=== PATIENT | female | born 1955 | race Caucasian/White ===

== ENCOUNTER 2020-06-13 17:41 | Observation (INO) | payer MEDICARE, SELFPAY ==
[2020-06-13] VITALS (7 sets, daily range): BP systolic 140–179; BP diastolic 73–97; PULSE 73–90; RESP 16–18; TEMP 36.6–36.8; O2SAT 94–100; BMI 36.2; BMI 34.0
--- NOTE | 2020-06-13 18:05 | PC.NURSE ---
pt poor historian. I asked her if these were the medications she took and she was unable to confirm what she took with the doses
[2020-06-13 18:14] LABS: Microscopic, Urine URINE MICROSCOPIC (MICROSCOPIC)
[2020-06-13 18:23] LABS: Appearance,Urine CLEAR (Clear); Bilirubin,Urine Negative (Negative); Blood, Urine 2+ (Negative); Color,Urine YELLOW (Yellow); Glucose,Urine (UA) 3+ (Negative); Ketones,Urine Negative (Negative); Leukocyte Esterase,Urine Negative (Negative); Nitrate,Urine Negative (Negative); PH,Urine 5.5 (5.0-8.5); Protein,Urine Negative (Negative); Urobilinogen,Urine 0.2 EU/dl (0.2)
[2020-06-13 18:25] LABS: Basophils % 0.3 % (0.1-2.0); Eosinophils % 0.3 % (0.1-12.0); Hematocrit 38.6 % (37.0-47.0); Hemoglobin 13.1 g/dL (12.2-16.2); Lymphocytes # 1.2 K/mm3 (0.7-4.5); Lymphocytes % 9.2 % (10-50); Mean Corpuscular Hemoglobin 31.5 pg (27.0-31.2); Mean Corpuscular Volume 92.5 fl (81-99); Mean Platelet Volume 8.8 fl (7.4-10.4); Monocytes # 0.3 K/mm3 (0.1-1.0); Monocytes % 2.2 % (1.7-9.3); Neutrophils # 11.6 K/mm3 (1.8-7.8); Platelet Count 175 K/mm3 (142-424); Red Blood Count 4.18 M/mm3 (4.20-5.40); Red Cell Distribution Width 15.1 % (11.5-17.5); White Blood Count 13.2 K/mm3 (4.8-10.8)
[2020-06-13 18:29] LABS: Chloride 94 mmol/L (98-107); Potassium 3.4 mmoL/L (3.5-5.1); Sodium 135 mmol/L (136-145)
[2020-06-13 18:31] LABS: Blood Urea Nitrogen 32 mg/dl (7-17); Creatinine Clearance Estimated 62 mL/min (50-200); Estimated Glomerular Filt Rate 38 ml/min (>60); GFR (African American) 46 ML/MIN (>60)
[2020-06-13 18:32] LABS: Alanine Aminotransferase 20 U/L (12-78); Albumin Level 3.8 g/dl (3.5-5.0); Alkaline Phosphatase 108 U/L (38-126); Anion Gap 14.4 mEq/L (5-15); Aspartate Amino Transferase 25 U/L (14-36); Bilirubin,Total 0.9 mg/dl (0.2-1.3); Calcium 9.3 mg/dl (8.4-10.2); Carbon Dioxide 30 mmol/L (22.0-30.0); Globulin 3.8 g/dL (1.3-3.2); Glucose 302 mg/dl (74-100); Total Protein,Serum 7.6 g/dl (6.3-8.2)
[2020-06-13 18:36] LABS: MANUAL DIFFERENTIAL MANUAL DIFFERENTIAL (MANUAL DIFF)
--- NOTE | 2020-06-13 18:45 | CT_ITS ---
PROCEDURE: CT ABDOMEN PELVIS WO CON CLINICAL INDICATION: abdominal pain Abdominal pain with nausea COMPARISON: No exams were available for comparison TECHNIQUE: Axial images obtained with sagittal and coronal reformats. All CT scans at the facility use one or more dose reduction, viz: automated exposure control, ma/kV adjustment per patient size (including targeted exams where dose is matched to indication, i.e. head), or iterative reconstruction technique. FINDINGS: LOWER THORAX: Coronary artery calcifications noted. ABDOMEN & PELVIS: Prior cholecystectomy. The liver, spleen, adrenal glands, pancreas have an unremarkable appearance. No renal or ureteral calculi. No hydronephrosis. Given history of appendectomy. No intestinal obstruction or free air. There is a moderate amount of retained colonic feces throughout colon. There is stranding of the fat in the left lower quadrant lateral to the sigmoid colon and anterior to the iliac vessels which may represent epiploic appendagitis. No evidence of diverticulitis. No abscess evident. There are post hysterectomy changes. No acute bony findings. IMPRESSION: 1. Inflammatory changes in the left lower quadrant which may represent epiploic appendagitis 2. Diverticulosis 3. Constipation Dictated b oTrres Orozco MD 06/14/2020 08:48 Torres Orozco MD in [place] 06/14/2020 08:48
--- NOTE | 2020-06-13 18:48 | HMH.EDGENADL ---
ED Disposition Clinical Impression: Left leg cellulitis, Diverticular disease Hyperglycemia due to type 2 diabetes mellitus Qualifiers: Diabetes mellitus longterm insulin use: with terminal worker use Qualified Code(s): E11.65 - Type 2 diabetes mellitus with hyperglycemia Disposition: Admitted As Inpatient Condition on Discharge: Good Time of Disposition: 19:28 - Critical Care Critical Care Time: No Attestation: On 06/13/20, the high probability of a clinically significant, sudden or life threatening deterioration of the following system(s) required my full and direct attention, intervention and personal management. The time I documented below is in addition to time spent performing reported procedures but includes the following listed in this critical care notation. Medical Decision Making - Medical Records Medical records reviewed: Yes: I reviewed the patient's medical records. - Moncho Inquiry Pt receiving controlled substance: No Vital Signs: 06/13/20 17:56 06/13/20 18:59 06/13/20 19:22 Temperature 97.9 F Temperature Source Oral Pulse Rate [Right] 90 73 73 Respiratory Rate 16 16 18 Blood Pressure [Right Arm] 179/84 H 160/74 H 153/76 H Blood Pressure Mean [Right Arm] 115 102 101 Blood Pressure Source [Right Arm] Automatic Cuff Automatic Cuff Blood Pressure Position [Right Arm] Sitting 02 Sat by Pulse Oximetry 100 98 96 Oxygen Delivery Method Room Air Room Air Room Air - Lab Data Lab Results 06/13/20 18:10: Urine Color Yellow, Urine Appearance Clear, Urine pH 5.5, Ur Specific [place] 1.010, Urine Protein Negative, Urine Glucose (UA) 3+, Urine Ketones Negative, Urine Blood 2+, Urine Nitrate Negative, Urine Bilirubin Negative, Urine Urobilinogen 0.2, Ur Leukocyte Esterase Negative 06/13/20 18:15: WBC 13.2 H, RBC 4.18 L, Hgb 13.1, Hct 38.6, MCV 92.5, MCH 31.5 H, MCHC 34.0, RDW 15.1, Plt Count 175, MPV 8.8, Neut % (Auto) 88.0 H, Lymph % (Auto) 9.2 L, [place] % (Auto) 2.2, Eos % (Auto) 0.3, Baso % (Auto) 0.3, Neut # (Auto) 11.6 H, Lymph # (Auto) 1.2, [place] # (Auto) 0.3, Eos # (Auto) 0.0, Baso # (Auto) 0.0, Total Counted 100, Neutrophils % (Manual) 84 H, Lymphocytes % (Manual) 12, Monocytes % (Manual) 3, Eosinophils % (Manual) 1, Platelet Estimate Normal, RBC Morphology Normal 06/13/20 18:15: Sodium 135 L, Potassium 3.4 L, Chloride 94 L, Carbon Dioxide 30, Anion Gap 14.4, BUN 32 H, Creatinine 1.40 H, Estimated Creat Clear 62, Estimated GFR 38 L, Est GFR ( Amer) 46 L, Glucose 302 H, Calcium 9.3, Total Bilirubin 0.9, AST 25, ALT 20, Alkaline Phosphatase 108, Total Protein 7.6, Albumin 3.8, Globulin 3.8 H, Albumin/Globulin Ratio 1.0 L 06/13/20 18:15: Lactate 2.8 H Result diagrams: 06/13/20 18:15 06/13/20 18:15 Orders (Tests/Meds): ED MEDICATIONS Generic Name Dose Route Start Last Admin Trade Name Freq PRN Reason Stop Dose Admin Clindamycin Phosphate 600 mg/ 104 mls @ 100 mls/hr 06/13/20 19:00 06/13/20 19:25 Sodium Chloride IV 06/27/20 18:59 100 mls/hr Q6H ROHINI Administration Protocol Sodium Chloride 1,000 mls @ 999 mls/hr 06/13/20 19:00 06/13/20 19:24 Sod Chlor 0.9% 1000ml Bag IV 06/13/20 20:00 999 mls/hr .Q1H1M ROHINI Administration ORDERS Category Date Time Status CT abdomen pelvis wo con Stat Cat Scan 06/13/20 18:45 Taken Full Resp Panel (COVID)(INPT) Routine Lab 06/13/20 18:52 Received UA [Urinalysis and Microscopic] Stat Lab 06/13/20 18:10 Results Blood Culture Stat Micro 06/13/20 18:15 Received Medical Decision Narrative: In summary this is a 65-year-old female with history of diabetes and recent diabetic foot ulcer presenting to the emergency department with fevers, chills, and generalized malaise. Differential diagnoses include cellulitis, bacteremia, sepsis, urinary tract infection, pyelonephritis, intra-abdominal infection. Plan to obtain CBC, CMP, urinalysis, urine culture, blood cultures, CT scan of the abdomen and pelvis, COVID swab. Patient given
[2020-06-13 18:49] LABS: Eosinophils % 1 % (0-3); Lymphocytes % 12 % (10-50); Monocytes % 3 % (2-9); Neutrophils % 84 % (42-76); Platelet Estimate Normal; RBC Morphology Normal; Total Cells Counted 100
[2020-06-13 19:02] LABS: Adenovirus,PCR Not Detected (NotDetected); Bordetella Pertussis Not Detected (NotDetected); Chlamydophila Pneumoniae, PCR Not Detected (NotDetected); Coronavirus 19, PCR Not Detected (NotDetected); Coronavirus 229E Not Detected (NotDetected); Coronavirus NL63 Not Detected (NotDetected); Coronavirus OC43 Not Detected (NotDetected); Coronovirus HKU1,PCR Not Detected (NotDetected); Human Metapneumovirus Not Detected (NotDetected); Influenza A, PCR Not Detected (NotDetected); Influenza AH1, 2009 Not Detected (NotDetected); Influenza AH1, PCR Not Detected (NotDetected); Influenza AH3,PCR Not Detected (NotDetected); Influenza B, PCR Not Detected (NotDetected); Mycoplasma Pneumoniae, PCR Not Detected (NotDetected); Parainfluenza 1, PCR Not Detected (NotDetected); Parainfluenza 2, PCR Not Detected (NotDetected); Parainfluenza 3, PCR Not Detected (NotDetected); Parainfluenza 4, PCR Not Detected (NotDetected); Respiratory Syncytial Virus Not Detected (NotDetected); Rhinovirus/Enterovirus Not Detected (NotDetected)
--- NOTE | 2020-06-13 19:03 | PC.NURSE ---
pt going to CT
[2020-06-13 19:22] LABS: Lactic Acid 2.8 mmol/L (0.7-2.1)
[2020-06-13 20:01] LABS: Bacteria,Urine Trace /lpf; Squamous Epithelial Cell,Urine Occasional #/hpf (0-5)
--- NOTE | 2020-06-13 21:23 | PC.NURSE ---
pt IV in left infiltrated. this nurse attempted to get IV with no success. SMiller at bedside attempting to get IV access. zosan and clindamycin medication delayed due to lack of IV assess.
--- NOTE | 2020-06-13 21:49 | PC.NURSE ---
report called to PRUDENCIO Malin
--- NOTE | 2020-06-13 22:06 | PC.NURSE ---
PT ARRIVED TO THE FLOOR VIA STRETCHER FROM ED AT [id number]
[2020-06-13 22:43] LABS: Reflex Lactic Add Lactic Reflex
[2020-06-13 22:53] LABS: Lactic Acid Follow Up (RFLX 1) 1.7 mmol/L (0.7-2.1)
--- NOTE | 2020-06-14 03:42 | PC.NURSE ---
Pt A&OX4 lungs diminished throughout. Pt denies any pain or SOA.LLE reddened,warm to touch, and trace edema. Stage 3 on left heel,dressing applied 4x4 and kerlix . Photo consent obtain and photos on chart. Pt has voided per bedpan several times this shift.
[2020-06-14 04:00] VITALS: BP 159/77; PULSE 79; RESP 18; TEMP 36.9; O2SAT 96
[2020-06-14 05:41] LABS: POC Glucose,Bedside 157 (70-110)
[2020-06-14 06:45] LABS: Chloride 98 mmol/L (98-107); Sodium 137 mmol/L (136-145)
[2020-06-14 06:49] LABS: Anion Gap 9.9 mEq/L (5-15); Blood Urea Nitrogen 27 mg/dl (7-17); Carbon Dioxide 32 mmol/L (22.0-30.0); Creatinine Clearance Estimated 74 mL/min (50-200); Estimated Glomerular Filt Rate 50 ml/min (>60); GFR (African American) 60 ML/MIN (>60); Glucose 142 mg/dl (74-100)
[2020-06-14 07:09] VITALS: BMI 34.2
[2020-06-14 07:09] LABS: Potassium 2.9 mmoL/L (3.5-5.1)
[2020-06-14 07:10] LABS: Basophils % 0.4 % (0.1-2.0); Eosinophils # 0.1 K/mm3 (0.0-0.4); Eosinophils % 1.4 % (0.1-12.0); Hematocrit 32.7 % (37.0-47.0); Lymphocytes # 0.9 K/mm3 (0.7-4.5); MANUAL DIFFERENTIAL MANUAL DIFFERENTIAL (MANUAL DIFF); Mean Corpuscular HGB Conc 34.9 g/dL (31.8-35.4); Mean Corpuscular Volume 91.8 fl (81-99); Mean Platelet Volume 7.9 fl (7.4-10.4); Monocytes # 0.2 K/mm3 (0.1-1.0); Monocytes % 2.4 % (1.7-9.3); Neutrophils # 8.5 K/mm3 (1.8-7.8); Neutrophils % 86.8 % (37.0-80.0); Platelet Count 134 K/mm3 (142-424); Red Blood Count 3.56 M/mm3 (4.20-5.40); Red Cell Distribution Width 15.1 % (11.5-17.5); White Blood Count 9.8 K/mm3 (4.8-10.8)
--- NOTE | 2020-06-14 07:20 | HMH.PHAVTE ---
[facility] Pharmacy VTE Monitoring - Patient Demographics Admission date: 06/13/20 Report Date: 06/14/20 Time: 07:21 Allergies/Adverse Reactions: Patient Allergies sulfamethoxazole [From Sulfamethoxazole-Trimethoprim] Allergy (Verified 06/14/20 05:30) Hives trimethoprim [From Sulfamethoxazole-Trimethoprim] Allergy (Verified 06/14/20 05:30) Hives From BACTRIM Allergy (Mild, Uncoded 06/13/20 22:14) Hives Height: 1.65 m Weight: 93.157 kg Patient Problems: Current Active Problems Left leg cellulitis (Acute) Hyperglycemia due to type 2 diabetes mellitus (Acute) Diverticular disease (Acute) - VTE Risk Labs: VTE Related Lab Results Hgb 13.1 g/dL (12.2-16.2) 06/13/20 18:15 Hct 32.7 % (37.0-47.0) L 06/14/20 06:21 Plt Count 134 K/mm3 (142-424) L 06/14/20 06:21 BUN 27 mg/dl (7-17) H 06/14/20 06:21 Creatinine 1.10 mg/dl (0.52-1.04) H D 06/14/20 06:21 Estimated Creat Clear 74 mL/min (50-200) 06/14/20 06:21 Was VTE Risk Assessment Performed: Yes VTE Score: 5 VTE Risk Level: Low Risk Clinical Trial Participant: No - Prophylaxis VTE Prophylaxis Ordered?: Yes Types of VTE Prophylaxis: TEDS Knee High
[2020-06-14 07:41] VITALS: BP 146/70; PULSE 79; RESP 18; TEMP 36.4; O2SAT 98
[2020-06-14 07:41] LABS: Calcium 8.3 mg/dl (8.4-10.2)
[2020-06-14 07:47] VITALS: PULSE 79; RESP 18; O2SAT 98
[2020-06-14 08:12] LABS: Lymphocytes % 7 % (10-50); Monocytes % 4 % (2-9); Neutrophils % 89 % (42-76); Platelet Estimate Normal; RBC Morphology Normal; Total Cells Counted 100
[2020-06-14 08:27] LABS: Hemoglobin 11.4 g/dL (12.2-16.2)
--- NOTE | 2020-06-14 08:37 | HMH.HP ---
*Admission Date: 06/13/20 *Chief complaint: left leg pain and erythema *History of present illness: Ms Paz is a 65-year-old female with history of diabetes, HTN, and previous CVA who presented to the emergency department with fever, chills, and generalized malaise. She has felt poorly for the past few days. She had surgery on a diabetic foot ulcer on her left foot and noticed some swelling and redness in her left lower leg. She has completed antibiotics, but there has been increasing redness around the site and up into her leg. She also has had abdominal pain that radiates into her back. She was worried about a urinary tract infection as well as worsening infection in her leg. She states she has had numerous episodes of cellulitis in her left leg. The patient was evaluated in the emergency room and given IV fluids as well as IV clindamycin for her cellulitis. Her white blood cell count was elevated. She did have a CT of her abdomen and pelvis showing constipation and evidence of diverticulosis but nothing acute. Her UA did not show signs of urinary tract infection. She was given IV Zosyn and admitted to Dr. Perez who is on service call. [facility] History I have reviewed the patient's past medical history: Yes Medical History: Reports:: Atrial Fibrillation, Cancer, Cerebrovascular Accident, Diabetes Mellitus Type 2, Hypertension, MRSA *Have you ever received a pneumonia vaccine?: Yes *Have you received a flu vaccine this season?: Yes Other Medical History: Reports: Cataracts (bilateral) Laterality Cases: Bilateral: Cataract Other Surgeries: Yes: Appendectomy, Cholecystectomy, Hysterectomy-Partial, Tubal Ligation Amputation: No - *Social History Last grade of school completed: GED Smoking Status: Former smoker Alcohol Intake: never *Occupational Status:: retired, disabled Housing: apartment Household Members: spouse, children *Travel in the last 8 weeks: None Family Hx:: Cancer, Diabetes, Heart Attack Review of Systems - Constitutional Reports chills, Reports fever(s), Reports weakness - Eyes Denies blurry vision, Denies double vision - ENT Reports nasal congestion, Denies sore throat - *Cardiovascular Denies chest pain, Denies shortness of breath - *Respiratory Denies cough, Denies shortness of breath - *Gastrointestinal Denies abdominal pain, Denies loose stools, Denies nausea, Denies vomiting - *Genitourinary Reports urinary urgency, Denies difficulty urinating, Denies painful urination - *Musculoskeletal Reports back pain, Denies joint pain - Integumentary/Breasts Reports redness (left lower leg) - *Neurologic Reports headache(s), Denies abnormal walking, Denies abnormal speech, Denies numbness, Denies dizziness, Denies weakness Meds Home Medications Medication Instructions Recorded Confirmed Type Apixaban [Eliquis] 5 mg PO BID 06/14/20 06/14/20 History Atorvastatin Calcium [Lipitor 20mg 20 mg PO HS 06/14/20 06/14/20 History Tab] Clopidogrel Bisulfate [Clopidogrel 75 mg PO DAILY 06/14/20 06/14/20 History 75mg Tab] Empagliflozin [Jardiance] 10 mg PO DAILY 06/14/20 06/14/20 History Furosemide [Furosemide 80mg Tab] 80 mg PO TID 06/14/20 06/14/20 History Insulin NPH Hum/Reg Insulin Hm 65 units SQ BIDWM 06/14/20 06/14/20 History [Novolin 70-30 100 Unit/ml Vial] Insulin Regular, Human [Novolin R] 15 units SQ AC 06/14/20 06/14/20 History Metoprolol Tartrate [Lopressor 100 100 mg PO BID 06/14/20 06/14/20 History mg Tablets] Potassium Chloride [K-Tab ER 20 20 meq PO DAILY 06/14/20 06/14/20 History mEq] Tramadol HCl [Tramadol 50mg 50 mg PO TIDP PRN 06/14/20 06/14/20 History Tab] allopurinoL [Allopurinol 100mg 100 mg PO TID 06/14/20 06/14/20 History tablet] cloNIDine HCL [cloNIDine 0.2mg 0.2 mg PO BID 06/14/20 06/14/20 History Tablet] dilTIAZem HCL [Diltiazem ER] 120 mg PO DAILY 06/14/20 06/14/20 History Allergies Allergy/AdvReac Type Severity Reac
--- NOTE | 2020-06-14 11:18 | ECG_ITS ---
APPROVED REPORT Exam: Resting ECG HR:63 bpm ECG Measurements Heart Rate 63 AXES QRSd 92 QRS 84 QT 476 T 51 QTc 487 <Conclusion> Atrial fibrillation Abnormal ECG Electronically signed by : Trent Chapa, 06/15/2020 18:51:50
[2020-06-14 11:27] LABS: POC Glucose,Bedside 201 (70-110)
--- NOTE | 2020-06-14 11:44 | HMH.PHAINT ---
home medication completed using list [facility] in [place], list from pt physician and pt bottles.
[2020-06-14 12:03] LABS: Blood Urea Nitrogen 27 mg/dl (7-17); Calcium 8.5 mg/dl (8.4-10.2); Carbon Dioxide 33 mmol/L (22.0-30.0); Chloride 96 mmol/L (98-107); Creatinine Clearance Estimated 68 mL/min (50-200); Estimated Glomerular Filt Rate 45 ml/min (>60); GFR (African American) 54 ML/MIN (>60); Glucose 198 mg/dl (74-100); Sodium 137 mmol/L (136-145)
[2020-06-14 14:59] VITALS: BP 133/76; PULSE 55; RESP 18; TEMP 36.5; O2SAT 95
[2020-06-14 16:06] LABS: POC Glucose,Bedside 169 (70-110)
--- NOTE | 2020-06-14 16:41 | PC.NURSE ---
Pt has been pleasant and cooperative this shift. A&O X4. No complaints of pain or SOA. Lungs CTA. Pt has been on room air for the majority of the shift with sats. >95%. Pt has O2 @ 2 LPM available at bedside for prn usage. Pt gets up with 1 assist to the BSC. No BM this shift. FSBS results have been 201 and 169, both of which have required insulin coverage per MAR. Stage 2 pressure ulcer noted to LT heel and dressed with an ABD pad, Kerlix, and tape. BLE are noted to be red and slightly edematous. 22 G peripheral IV in the LT wrist is patent and infusing NS @ 150 ML/HR. VSS. Call light within reach. Will continue to monitor.
[2020-06-14 20:00] VITALS: BP 126/69; PULSE 67; RESP 16; TEMP 36.6; O2SAT 96
[2020-06-14 20:26] VITALS: PULSE 67; O2SAT 96
[2020-06-14 20:28] LABS: POC Glucose,Bedside 255 (70-110)
--- NOTE | 2020-06-15 03:22 | PC.NURSE ---
Pt A&OX4 lungs CTA. Pt denies any pain or SOA. BLE slight redness noted with 1+ edema. Dressing in place on L heel c/d/i. Pt was up to chair @ beginning of shift and tolerated well. Pt has voided per BSC several time this shift. Pt has rested quietly this shift.
[2020-06-15 04:00] VITALS: BP 137/69; PULSE 59; RESP 17; TEMP 36.7; O2SAT 97
[2020-06-15 04:57] VITALS: BMI 34.9
[2020-06-15 05:48] LABS: POC Glucose,Bedside 179 (70-110)
[2020-06-15 07:05] LABS: Chloride 102 mmol/L (98-107); Potassium 3.5 mmoL/L (3.5-5.1); Sodium 138 mmol/L (136-145)
[2020-06-15 07:07] LABS: Blood Urea Nitrogen 23 mg/dl (7-17); Creatinine Clearance Estimated 69 mL/min (50-200); Estimated Glomerular Filt Rate 45 ml/min (>60); GFR (African American) 54 ML/MIN (>60)
[2020-06-15 07:08] LABS: Alanine Aminotransferase 10 U/L (12-78); Albumin Level 2.9 g/dl (3.5-5.0); Albumin/Globulin Ratio 0.9 (1.1-1.8); Alkaline Phosphatase 94 U/L (38-126); Aspartate Amino Transferase 21 U/L (14-36); Bilirubin,Total 0.6 mg/dl (0.2-1.3); Calcium 8.3 mg/dl (8.4-10.2); Globulin 3.4 g/dL (1.3-3.2); Glucose 166 mg/dl (74-100); Total Protein,Serum 6.3 g/dl (6.3-8.2)
[2020-06-15 07:42] LABS: Anion Gap 10.5 mEq/L (5-15); Carbon Dioxide 29 mmol/L (22.0-30.0)
[2020-06-15 08:00] VITALS: BP 146/77; PULSE 77; RESP 18; TEMP 36.5; O2SAT 96
--- NOTE | 2020-06-15 08:34 | HMH.ACPN2 ---
Internal Medicine - PN: Subj *Date: 06/15/20 *Time: 08:34 Interval history: Patient states she is feeling better this morning. She denies any abdominal pain. She still has some pain in her left lower leg. She thinks the swelling and redness is slightly better today. She slept well and ate breakfast. Exam Vital signs and Labs for Last 24 Hours: Temp Pulse Resp BP Pulse Ox 98.0 F 59 L 17 137/69 97 06/15/20 04:00 06/15/20 04:00 06/15/20 04:00 06/15/20 04:00 06/15/20 04:00 Laboratory Results - last 24 hr 06/14/20 11:02: POC Glucose 201 H 06/14/20 11:45: Sodium 137, Potassium 3.0 L, Chloride 96 L, Carbon Dioxide 33 H, Anion Gap 11.0, BUN 27 H, Creatinine 1.20 H, Estimated Creat Clear 68, Estimated GFR 45 L, Est GFR ( Amer) 54 L, Glucose 198 H D, Calcium 8.5 06/14/20 15:45: POC Glucose 169 H 06/14/20 20:02: POC Glucose 255 H 06/15/20 05:30: POC Glucose 179 H 06/15/20 06:30: Sodium 138, Potassium 3.5, Chloride 102, Carbon Dioxide 29, Anion Gap 10.5, BUN 23 H, Creatinine 1.20 H, Estimated Creat Clear 69, Estimated GFR 45 L, Est GFR ( Amer) 54 L, Glucose 166 H, Calcium 8.3 L, Total Bilirubin 0.6, AST 21, ALT 10 L D, Alkaline Phosphatase 94, Total Protein 6.3, Albumin 2.9 L, Globulin 3.4 H, Albumin/Globulin Ratio 0.9 L I & O for Last 24 hours: Intake & Output 06/12/20 06/13/20 06/14/20 06/15/20 11:59 11:59 11:59 11:59 Intake Total 2313 / 2313 2480 / 2480 Output Total 300 / 300 Balance 2012 2480 / 2480 Weight 205 lb 6 oz 210 lb - Constitutional no acute distress - *Routine Respiratory Exam Present: CTA bilaterally - *Routine Cardiovascular Exam Present: irregular rhythm - *Routine Abdominal Exam Present: soft, normoactive bowel sounds. Absent: tenderness - *Routine Extremities Exam Present: edema (left lower leg slightly improved). Absent: cyanosis, clubbing - *Routine Skin Exam Present: intact, erythema (left lower leg slightly improved) - *Routine Neurological Exam Present: alert, oriented X3 Assessment and Plan (1) Left leg cellulitis Current visit: Yes Status: Acute Category: Medical Code(s): L03.116 - Cellulitis of left lower limb (2) Hyperglycemia due to type 2 diabetes mellitus Current visit: Yes Status: Acute Qualifiers: Diabetes mellitus usp insulin use: with intermediate manager use Qualified Code(s): E11.65 - Type 2 diabetes mellitus with hyperglycemia; Z79.4 - supervisor intermediates (current) use of insulin Category: Medical Code(s): E11.65 - Type 2 diabetes mellitus with hyperglycemia (3) Hypertension Current visit: Yes Status: Chronic Category: Medical Code(s): I10 - Essential (primary) hypertension (4) Paroxysmal A-fib Current visit: Yes Status: Chronic Category: Medical Code(s): I48.0 - Paroxysmal atrial fibrillation (5) Diverticular disease Current visit: Yes Status: Chronic Category: Medical Code(s): K57.90 - Diverticulosis of intestine, part unspecified, without perforation or abscess without bleeding (6) Hypokalemia Current visit: Yes Status: Acute Category: Medical Code(s): E87.6 - Hypokalemia (7) Renal insufficiency Current visit: Yes Status: Acute Category: Medical Code(s): N28.9 - Disorder of kidney and ureter, unspecified - Assessment and plan all Dx Assessment and Plan for all problems:: We will try to locate EKG report which was ordered yesterday. Swelling and redness in her left lower leg seem to be better. We will continue antibiotics and await culture results. Potassium has normalized as has her white blood cell count.
[2020-06-15 11:46] LABS: POC Glucose,Bedside 239 (70-110)
[2020-06-15 12:07] VITALS: BMI 34.9
--- NOTE | 2020-06-15 15:29 | HMH.PHAINT ---
DISCHARGE COUNSELING COMPLETED ON PATIENT. NEW PRESCRIPTIONS INCLUDE CLINDAMYCIN, LASIX (DOSE CHANGE), METOPROLOL TARTRATE (DOSE CHANGE), AND POTASSIUM. ALL NEW PRESCRIPTIONS WERE SENT TO [facility] IN [place]. PATIENT IS TO CONTINUE ALL HOME MEDICATIONS WITH THE EXCEPTION OF THE DOSE CHANGES IN LASIX AND METOPROLOL. PATIENT VERBALIZED UNDERSTANDING AND HAD NO QUESTIONS AT THIS TIME. -KATHY FLYNN, ZAKD
[2020-06-15 16:00] VITALS: BP 146/85; PULSE 58; RESP 16; TEMP 36.4; O2SAT 97
[2020-06-15 16:57] LABS: POC Glucose,Bedside 242 (70-110)
--- NOTE | 2020-06-15 18:08 | PC.NURSE ---
pt has done very well today. she has been up to bsc with standby assistance. no complaints voiced. vss. will cont. to monitor.
--- NOTE | 2020-06-19 13:43 | HMH.DCSUM ---
General - General Admission date:: 06/13/20 Discharge date: 06/15/20 HPI HPI: Ms Paz is a 65-year-old female with history of diabetes, HTN, and previous CVA who presented to the emergency department with fever, chills, and generalized malaise. She has felt poorly for the past few days. She had surgery on a diabetic foot ulcer on her left foot and noticed some swelling and redness in her left lower leg. She has completed antibiotics, but there has been increasing redness around the site and up into her leg. She also has had abdominal pain that radiates into her back. She was worried about a urinary tract infection as well as worsening infection in her leg. She states she has had numerous episodes of cellulitis in her left leg. The patient was evaluated in the emergency room and given IV fluids as well as IV clindamycin for her cellulitis. Her white blood cell count was elevated. She did have a CT of her abdomen and pelvis showing constipation and evidence of diverticulosis but nothing acute. Her UA did not show signs of urinary tract infection. She was given IV Zosyn and admitted to Dr. Perez who is on service call. Hospital Course Hospital Course: The patient was started on IV fluids and IV antibiotics for her cellulitis. She was also started on potassium due to hypokalemia. The swelling and redness in her left lower leg improved and her potassium normalized as did her white blood cell count. The patient was much more lucid. She was able to report that she had a distant past history of rupture of the left Achilles tendon, and a reinjury last month which required her to wear a boot. Apparently this was the etiology of the heel ulcer. She was stable to be discharged home on oral antibiotics and will f/u with her PCP. Objective Vital signs: Temp Pulse Resp BP Pulse Ox 97.6 F 58 L 16 146/85 H 97 06/15/20 16:00 06/15/20 16:00 06/15/20 16:00 06/15/20 16:00 06/15/20 16:00 Narrative: - Constitutional no acute distress - *Routine HEENT Exam Head: Present: normocephalic Eye: Present: EOMI, PERRL ENT: Present: mucous membranes dry - *Routine Neck Exam Present: supple. Absent: lymphadenopathy - *Routine Respiratory Exam Present: CTA bilaterally - *Routine Cardiovascular Exam Present: irregular rhythm - *Routine Abdominal Exam Present: soft, normoactive bowel sounds, tenderness (diffuse) - *Routine Extremities Exam Present: edema (bilateral LE edema). Absent: cyanosis, clubbing - *Routine Skin Exam Present: erythema (LLE, dressing in place over foot), warm. Absent: rash - *Routine Neurological Exam Present: alert, oriented X3 DS: Diagnosis - Discharge Diagnosis (1) Left leg cellulitis Status: Acute (2) Hyperglycemia due to type 2 diabetes mellitus Status: Acute (3) Hypertension Status: Chronic (4) Paroxysmal A-fib Status: Chronic (5) Diverticular disease Status: Chronic (6) Hypokalemia Status: Acute (7) Renal insufficiency Status: Acute Discharge Plan - Patient Discharge Instructions Patient Instructions: DI for Cellulitis -- Adult, Cellulitis, Essential Hypertension, Acute Renal Failure, DI for Hypokalemia - Follow up Plan Disposition: Home, Self-Fpc Medications: Home Medications Medication Instructions Recorded Confirmed Type Apixaban [Eliquis] 5 mg PO BID 06/14/20 06/14/20 History Atorvastatin Calcium [Lipitor 20mg 20 mg PO HS 06/14/20 06/14/20 History Tab] Clopidogrel Bisulfate [Clopidogrel 75 mg PO DAILY 06/14/20 06/14/20 History 75mg Tab] Collagenase Clostridium Hist. 1 applicatio TOPICAL DIRECTED 06/14/20 06/14/20 History [Santyl] Empagliflozin [Jardiance] 10 mg PO DAILY 06/14/20 06/14/20 History Insulin NPH Hum/Reg Insulin Hm 24 units SQ BIDWM 06/14/20 06/15/20 History [Novolin 70-30 100 Unit/ml Vial] Insulin Regular, Human [Novolin R] 0 units SQ AC 06/14/20 06/14/20 Histo
== END 2020-06-15 19:12 | disposition home or self-care (01) ==
LOC: ER 19:29 → 2ND 19:49
PROVIDERS: Admitting Provider Family Medicine; Emergency Provider Emergency Medicine; PCP Family Medicine; Visit Provider Family Medicine
DX: E11.621 Type 2 diabetes mellitus with foot ulcer (principal); L03.116 Cellulitis of left lower limb; E11.65 Type 2 diabetes mellitus with hyperglycemia; I10 Essential (primary) hypertension; I48.0 Paroxysmal atrial fibrillation; E87.6 Hypokalemia; Z87.891 Personal history of nicotine dependence; Z79.4 Long term (current) use of insulin; Z79.01 Long term (current) use of anticoagulants; Z79.02 Long term (current) use of antithrombotics/antiplatelets; Z88.2 Allergy status to sulfonamides; Z88.8 Allergy status to other drugs, medicaments and biological substances
CPT/HCPCS: 36415; 74176; 80048; 80053; 81001; 82962; 83605; 85007; 85025; 87040; 87581; 87633; 87798; 93005; 96365; 96367; 99285; G0378; J2543

== ENCOUNTER 2020-10-01 07:49 | Observation (INO) | payer MEDICARE, SELFPAY ==
[2020-10-01] VITALS (9 sets, daily range): BP systolic 91–158; BP diastolic 60–84; PULSE 60–120; RESP 16–22; TEMP 36.6–37.4; O2SAT 84–100; BMI 39.9; BMI 37.6
--- NOTE | 2020-10-01 08:01 | XR_ITS ---
PROCEDURE: XR CHEST PORTABLE CLINICAL HISTORY: soa Shortness of air for 2 days COMPARISON: CR CXR CHEST(2 VIEWS-NOT PORTABLE) from 05/14/2014 CR CXR CHEST(2 VIEWS-NOT PORTABLE) from 05/25/2014 CR CXR1 CHEST-PORTABLE from 12/24/2014 FINDINGS: There is cardiomegaly with pulmonary venous redistribution and interstitial edema consistent with CHF. There may be trace bilateral effusions. Lung bases are under penetrated. No acute bony abnormalities. IMPRESSION: CHF with mild interstitial edema Dictated by: Torres Orozco MD 10/01/2020 09:39 Torres Orozco MD in [place] 10/01/2020 09:39
--- NOTE | 2020-10-01 08:04 | ECG_ITS ---
APPROVED REPORT Exam: Resting ECG HR:96 bpm ECG Measurements Heart Rate 96 AXES QRSd 76 QRS 78 QT 336 T 87 QTc 424 Conclusion Atrial fibrillation Cannot rule out Anterior infarct, age undetermined Abnormal ECG Electronically signed by : Sohan Gibson, 10/02/2020 07:32:24
--- NOTE | 2020-10-01 08:04 | HMH.EDGENADL ---
ED Disposition Clinical Impression: Atrial fibrillation with rapid ventricular response, Hypoxemia, CHF exacerbation Disposition: Admitted As Inpatient Condition on Discharge: Fair Referrals: Ludwig Goldberg [Primary Care Provider] - - Critical Care Critical Care Time: No Attestation: On , the high probability of a clinically significant, sudden or life threatening deterioration of the following system(s) required my full and direct attention, intervention and personal management. The time I documented below is in addition to time spent performing reported procedures but includes the following listed in this critical care notation. Medical Decision Making - Medical Records Medical records reviewed: Yes: I reviewed the patient's medical records. - Moncho Inquiry Pt receiving controlled substance: No Vital Signs: 10/01/20 07:50 10/01/20 09:01 10/01/20 09:44 Temperature 99.3 F Temperature Source Oral Pulse Rate [Left Radial] 120 H 112 H 82 Respiratory Rate 22 20 18 Blood Pressure [Right Arm] 158/71 H 146/60 H 91/69 L Blood Pressure Mean [Right Arm] 100 88 76 Blood Pressure Source [Right Arm] Automatic Cuff Automatic Cuff Automatic Cuff Blood Pressure Position [Right Arm] Sitting Sitting Sitting 02 Sat by Pulse Oximetry 84 L 100 99 Oxygen Delivery Method Room Air Nasal Cannula Nasal Cannula Oxygen Flow Rate (LPM) 2 2 - Lab Data Lab results reviewed: Yes: I reviewed the patient's lab results. Lab Results 10/01/20 08:15: WBC 9.9, RBC 4.03 L, Hgb 12.3, Hct 37.8, MCV 93.8, MCH 30.6, MCHC 32.6, RDW 14.4, Plt Count 152, MPV 8.5, Neut % (Auto) 80.9 H, Lymph % (Auto) 11.8, [place] % (Auto) 3.2, Eos % (Auto) 3.4, Baso % (Auto) 0.7, Neut # (Auto) 8.0 H, Lymph # (Auto) 1.2, [place] # (Auto) 0.3, Eos # (Auto) 0.3, Baso # (Auto) 0.1 10/01/20 08:15: Sodium 140, Potassium 4.6, Chloride 103, Carbon Dioxide 32 H, Anion Gap 9.6, BUN 40 H, Creatinine 1.30 H, Estimated Creat Clear 73, Estimated GFR 41 L, Est GFR ( Amer) 50 L, Glucose 115 H, Calcium 9.0, Total Bilirubin 0.6, AST 26, ALT 19, Alkaline Phosphatase 149 H, Troponin I 0.02, NT-Pro-B Natriuret Pep 1500 H, Total Protein 6.8, Albumin 3.8, Globulin 3.0, Albumin/Globulin Ratio 1.3 10/01/20 09:07: PT 11.3, INR 1.02 10/01/20 09:07: Magnesium 2.0 10/01/20 09:47: SARS-CoV-2 IgG Ab (Rapid) Negative, SARS-CoV-2 IgM Ab (Rapid) Negative Result diagrams: 10/01/20 08:15 10/01/20 08:15 Orders (Tests/Meds): ED MEDICATIONS Discontinued Medications Generic Name Dose Route Start Last Admin Trade Name Freq PRN Reason Stop Dose Admin Furosemide 40 mg 10/01/20 08:02 10/01/20 08:49 Furosemide 40mg/4ml Vial IV 10/01/20 08:03 40 mg ONCE ONE Administration ORDERS Category Date Time Status Troponin I Q3H Lab 10/01/20 11:00 Ordered Troponin I Q3H Lab 10/01/20 14:00 Ordered EKG Request [ECG Request by /Mitra] Stat Y 10/01/20 08:01 Ordered Medical Decision Narrative: 65-year-old female with atrial fibrillation, hypertension, CHF presenting with acute onset dyspnea. Nontoxic, afebrile, hemodynamically stable. Initially hypoxic to 86% on room air on arrival and is oxygenating well on 2 to 3 L by nasal cannula now. Patient was in atrial fibrillation with rapid ventricular response up to the 140s on arrival but this was very brief and she remained rate controlled in atrial fibrillation with a heart rate in the 90s without intervention. Her initial troponin is 0.02 and her EKG was nonischemic. Chest x-ray showed interstitial edema consistent with CHF exacerbation and her proBNP is up to 1500. She was given 40 mg of IV Lasix for this. CBC and CMP are nonactionable. Given her oxygen requirement and hypoxemia, I will speak to her primary care physician to admit her to the hospital. Patient remained stable in the ED. General Adult HPI - General Stated complaint: SOA Time Seen by Provider: 10/01/20 08:04 - History of Present Illness HPI narrative:
[2020-10-01 08:41] LABS: Basophils # 0.1 K/mm3 (0-0.2); Basophils % 0.7 % (0.1-2.0); Eosinophils # 0.3 K/mm3 (0.0-0.4); Eosinophils % 3.4 % (0.1-12.0); Hematocrit 37.8 % (37.0-47.0); Hemoglobin 12.3 g/dL (12.2-16.2); Lymphocytes # 1.2 K/mm3 (0.7-4.5); Lymphocytes % 11.8 % (10-50); Mean Corpuscular HGB Conc 32.6 g/dL (31.8-35.4); Mean Corpuscular Hemoglobin 30.6 pg (27.0-31.2); Mean Corpuscular Volume 93.8 fl (81-99); Mean Platelet Volume 8.5 fl (7.4-10.4); Monocytes # 0.3 K/mm3 (0.1-1.0); Monocytes % 3.2 % (1.7-9.3); Neutrophils % 80.9 % (37.0-80.0); Platelet Count 152 K/mm3 (142-424); Red Blood Count 4.03 M/mm3 (4.20-5.40); Red Cell Distribution Width 14.4 % (11.5-17.5); White Blood Count 9.9 K/mm3 (4.8-10.8)
--- NOTE | 2020-10-01 09:33 | PC.NURSE ---
lab at to recollect blood r/t hemoloysis on previous specimens
[2020-10-01 10:02] LABS: INR 1.02 (0.9-1.1); Prothrombin Time 11.3 seconds (9.4-11.8)
--- NOTE | 2020-10-01 10:22 | PC.NURSE ---
Labs are delayed due to only have a red top which takes longer to spin down per lab. Results will be released in approx 15-18 minutes.
[2020-10-01 10:23] LABS: Chloride 103 mmol/L (98-107); Potassium 4.6 mmoL/L (3.5-5.1); Sodium 140 mmol/L (136-145)
[2020-10-01 10:25] LABS: Alanine Aminotransferase 19 U/L (12-78); Aspartate Amino Transferase 26 U/L (14-36); Blood Urea Nitrogen 40 mg/dl (7-17); Creatinine Clearance Estimated 73 mL/min (50-200); Estimated Glomerular Filt Rate 41 ml/min (>60); GFR (African American) 50 ML/MIN (>60)
[2020-10-01 10:26] LABS: Albumin Level 3.8 g/dl (3.5-5.0); Albumin/Globulin Ratio 1.3 (1.1-1.8); Alkaline Phosphatase 149 U/L (38-126); Anion Gap 9.6 mEq/L (5-15); Bilirubin,Total 0.6 mg/dl (0.2-1.3); Carbon Dioxide 32 mmol/L (22.0-30.0); Glucose 115 mg/dl (74-100); Total Protein,Serum 6.8 g/dl (6.3-8.2)
[2020-10-01 10:35] LABS: NT Pro Brain Natriuretic Pep. 1500 pg/mL (0-125)
[2020-10-01 10:38] LABS: Troponin I 0.02 ng/ml (0.00-0.034)
[2020-10-01 10:39] LABS: Coronavirus 19 IgG Antibody Negative (Negative); Coronavirus 19 IgM Antibody Negative (Negative)
--- NOTE | 2020-10-01 10:51 | PC.NURSE ---
Dr Pate on with Dr Benitez
--- NOTE | 2020-10-01 10:54 | PC.NURSE ---
Dr Pate speaking with Dr Gibson nail professional for unassigned patients
[2020-10-01 11:39] LABS: Troponin I 0.03 ng/ml (0.00-0.034)
--- NOTE | 2020-10-01 11:57 | PC.NURSE ---
Pt changed after urinating a large amount in her brief and bed. Pt's entire sheet was wet. Bed changed and new brief placed.
--- NOTE | 2020-10-01 12:05 | PC.NURSE ---
contacted admissions to check on status of admission, states they don't have the information. Spoke with house visitor who states she will contact admissions now with bed assignment information.
[2020-10-01 12:18] LABS: Microscopic, Urine URINE MICROSCOPIC (MICROSCOPIC)
[2020-10-01 12:22] LABS: Appearance,Urine CLEAR (Clear); Bilirubin,Urine Negative (Negative); Blood, Urine TRACE-I (Negative); Color,Urine YELLOW (Yellow); Glucose,Urine (UA) Negative (Negative); Ketones,Urine Negative (Negative); Leukocyte Esterase,Urine Negative (Negative); Nitrate,Urine Negative (Negative); Protein,Urine Negative (Negative); Specific Gravity, Urine 1.015 (1.005-1.030); Urobilinogen,Urine 0.2 EU/dl (0.2)
--- NOTE | 2020-10-01 12:22 | PC.NURSE ---
Pt on bed handley again at this time.
[2020-10-01 12:37] LABS: Squamous Epithelial Cell,Urine Occasional #/hpf (0-5)
--- NOTE | 2020-10-01 13:42 | HMH.PHAVTE ---
[facility] Pharmacy VTE Monitoring - Patient Demographics Admission date: 10/01/20 Report Date: 10/01/20 Time: 13:42 Allergies/Adverse Reactions: Patient Allergies sulfamethoxazole [From Sulfamethoxazole-Trimethoprim] Allergy (Verified 06/14/20 05:30) Hives trimethoprim [From Sulfamethoxazole-Trimethoprim] Allergy (Verified 06/14/20 05:30) Hives Height: 1.65 m Weight: 108.862 kg Patient Problems: Current Active Problems Atrial fibrillation with rapid ventricular response (Acute) Hypoxemia (Acute) CHF exacerbation (Acute) - VTE Risk Labs: VTE Related Lab Results Hgb 12.3 g/dL (12.2-16.2) 10/01/20 08:15 Hct 37.8 % (37.0-47.0) 10/01/20 08:15 Plt Count 152 K/mm3 (142-424) 10/01/20 08:15 PT 11.3 seconds (9.4-11.8) 10/01/20 09:07 INR 1.02 (0.9-1.1) 10/01/20 09:07 BUN 40 mg/dl (7-17) H 10/01/20 08:15 Creatinine 1.30 mg/dl (0.52-1.04) H 10/01/20 08:15 Estimated Creat Clear 73 mL/min (50-200) 10/01/20 08:15 - Prophylaxis VTE Prophylaxis Ordered?: Yes Types of VTE Prophylaxis: IPCS Thigh High Location of Applied Device: Bilateral Lower Extremeties
--- NOTE | 2020-10-01 13:42 | HMH.PHAINT ---
MEDICATION RECONCILIATION COMPLETED ON PATIENT USING EXTERNAL FILL HISTORY FROM PHARMACY, RX BOTTLES, AND PATIENT INTERVIEW. -KATHY FLYNN, ZAKD
[2020-10-01 15:38] LABS: POC Glucose,Bedside 152 (70-110)
--- NOTE | 2020-10-01 16:45 | PC.NURSE ---
Pt alert and oriented x 4. RR even and unlabored. Pt is on 3 L NC 02. CB in reach. Denies soa at this time. Lungs cta. Afib on tele -controlled. BS x 4. Will cont to mx this shift.
--- NOTE | 2020-10-01 17:50 | PC.WOUNDNOTE ---
Wound Location: Length:4cm Width:3cm Depth:0.5cm Undermining Y/N: Tunneling cm: Granulation %: Slough/necrotic tissue %: Inflammation/swelling Y/N: Pain and/or tenderness Y/N: Exudate: serous drainage, clear yellow* dsg applied telfa and tegaderm Serosanguinous Sanguinous Serosanguinous Seropurulent Purulent Color: Clear Jess Cloudy/milky [place] Extension Red Green Yellow Brown [place] Blue Consistency: Thick Thin Amount: None Scant Small Moderate Large Odor Y/N:
--- NOTE | 2020-10-01 20:00 | HMH.HP ---
*Admission Date: 10/01/20 *Chief complaint: Dyspnea and palpitations *History of present illness: 65-year-old white female, patient of Dr. Ahn, who has a history of CHF, atrial fibrillation oxygen dependent, who came to our hospital emergency department with 3 hours of shortness of air that was not relieved by her home oxygen. In the emergency department found to have evidence of acute on chronic CHF with pulmonary edema symptoms, increased interstitial markings and elevated BNP levels. Responded well to diuretics in the ER but continued to be dyspneic and was admitted to hospital for further diuresis and reevaluation of her medication regimen. She reports compliance with her medication but there may have been some question in the ER about whether not she had missed some medications, specifically her anticoagulations therapy. We do not have access to recent outpatient records here. She does remember having an echocardiogram at [facility] in the past year. [facility] History I have reviewed the patient's past medical history: Yes Medical History: Reports:: Arrhythmia, Atrial Fibrillation, Congestive Heart Failure, Cerebrovascular Accident, Diabetes Mellitus Type 2, Hypertension Denies:: Cancer, MRSA *Have you ever received a pneumonia vaccine?: Yes *Have you received a flu vaccine this season?: No Other Medical History: Reports: Cataracts (bilateral) Other Surgeries: Yes: Appendectomy, Cholecystectomy, Hysterectomy-Partial, Tubal Ligation Amputation: No - *Social History Smoking Status: Former smoker Alcohol Intake: never *Occupational Status:: disabled Housing: house Household Members: spouse, children *Travel in the last 8 weeks: None Family Hx:: Cancer, Diabetes, Heart Attack Review of Systems - Review of Systems Review of systems:: pertinent systems reviewed and negative unless documented below - *Cardiovascular Reports shortness of breath with activity, Reports irregular heart rhythm - *Respiratory Reports chest congestion, Reports cough Meds Home Medications Medication Instructions Recorded Confirmed Type Atorvastatin Calcium [Lipitor 20mg 20 mg PO HS 06/14/20 10/01/20 History Tab] Clopidogrel Bisulfate [Clopidogrel 75 mg PO DAILY 06/14/20 10/01/20 History 75mg Tab] Collagenase Clostridium Hist. 1 applicatio TOPICAL DIRECTED 06/14/20 10/01/20 History [Santyl] Insulin NPH Hum/Reg Insulin Hm 65 units SQ BIDWM 06/14/20 10/01/20 History [Novolin 70-30 100 Unit/ml Vial] Insulin Regular, Human [Novolin R] 0 units SQ AC 06/14/20 10/01/20 History Tramadol HCl [Tramadol 50mg 50 mg PO TIDP PRN 06/14/20 10/01/20 History Tab] cloNIDine HCL [cloNIDine 0.2mg 0.2 mg PO BID 06/14/20 10/01/20 History Tablet] Potassium Chloride [K-Tab ER 20 20 meq PO BID #60 tab 06/15/20 10/01/20 Rx mEq] Metoprolol Tartrate [Lopressor 50 mg PO TID 10/01/20 10/01/20 History 50mg tablet] Spironolactone [Spironolactone 25 mg PO DAILY 10/01/20 10/01/20 History 25mg Tablet] Torsemide [Demadex] 20 mg PO DAILY 10/01/20 10/01/20 History Allergies Allergy/AdvReac Type Severity Reaction Status Date / Time sulfamethoxazole Allergy Hives Verified 06/14/20 05:30 [From Sulfamethoxazole-Trimethoprim] trimethoprim Allergy Hives Verified 06/14/20 05:30 [From Sulfamethoxazole-Trimethoprim] Exam Vital signs and Labs for Last 24 Hours: Temp Pulse Resp BP Pulse Ox 98.1 F 73 18 145/68 H 97 10/01/20 15:55 10/01/20 16:00 10/01/20 15:55 10/01/20 15:55 10/01/20 15:55 Laboratory Results - last 24 hr 10/01/20 08:15: WBC 9.9, RBC 4.03 L, Hgb 12.3, Hct 37.8, MCV 93.8, MCH 30.6, MCHC 32.6, RDW 14.4, Plt Count 152, MPV 8.5, Neut % (Auto) 80.9 H, Lymph % (Auto) 11.8, [place] % (Auto) 3.2, Eos % (Auto) 3.4, Baso % (Auto) 0.7, Neut # (Auto) 8.0 H, Lymph # (Auto) 1.2, [place] # (Auto) 0.3, Eos # (Auto) 0.3, Baso # (Auto) 0.1 10/01/20 08:15: Sodium 140, Potassium 4.6
[2020-10-01 23:17] LABS: POC Glucose,Bedside 210 (70-110)
[2020-10-02] VITALS: BP 109/50; PULSE 57; PULSE 60; RESP 16; TEMP 36.8; O2SAT 97
[2020-10-02 04:00] VITALS: BP 127/65; PULSE 65; PULSE 70; RESP 18; TEMP 36.8; O2SAT 95
[2020-10-02 05:55] VITALS: BMI 36.0
[2020-10-02 06:30] LABS: POC Glucose,Bedside 159 (70-110)
[2020-10-02 06:40] LABS: Basophils % 0.6 % (0.1-2.0); Eosinophils # 0.3 K/mm3 (0.0-0.4); Eosinophils % 4.6 % (0.1-12.0); Hematocrit 37.9 % (37.0-47.0); Hemoglobin 12.4 g/dL (12.2-16.2); Lymphocytes # 1.5 K/mm3 (0.7-4.5); Lymphocytes % 23.6 % (10-50); Mean Corpuscular HGB Conc 32.7 g/dL (31.8-35.4); Mean Corpuscular Hemoglobin 30.3 pg (27.0-31.2); Mean Corpuscular Volume 92.5 fl (81-99); Mean Platelet Volume 8.5 fl (7.4-10.4); Monocytes # 0.3 K/mm3 (0.1-1.0); Monocytes % 4.1 % (1.7-9.3); Neutrophils # 4.2 K/mm3 (1.8-7.8); Platelet Count 162 K/mm3 (142-424); Red Cell Distribution Width 13.9 % (11.5-17.5); White Blood Count 6.2 K/mm3 (4.8-10.8)
[2020-10-02 06:47] LABS: Chloride 100 mmol/L (98-107)
[2020-10-02 06:48] LABS: Potassium 4.1 mmoL/L (3.5-5.1); Sodium 139 mmol/L (136-145)
[2020-10-02 06:50] LABS: Alanine Aminotransferase 15 U/L (12-78); Aspartate Amino Transferase 23 U/L (14-36); Blood Urea Nitrogen 34 mg/dl (7-17); Creatinine Clearance Estimated 71 mL/min (50-200); Estimated Glomerular Filt Rate 45 ml/min (>60); GFR (African American) 54 ML/MIN (>60)
[2020-10-02 06:51] LABS: Albumin Level 3.5 g/dl (3.5-5.0); Albumin/Globulin Ratio 1.1 (1.1-1.8); Alkaline Phosphatase 136 U/L (38-126); Anion Gap 8.1 mEq/L (5-15); Calcium 8.8 mg/dl (8.4-10.2); Carbon Dioxide 35 mmol/L (22.0-30.0); Globulin 3.1 g/dL (1.3-3.2); Glucose 169 mg/dl (74-100); Total Protein,Serum 6.6 g/dl (6.3-8.2)
[2020-10-02 08:00] VITALS: BP 147/63; PULSE 76; PULSE 90; RESP 20; TEMP 36.4; O2SAT 99
--- NOTE | 2020-10-02 08:00 | CA_ITS ---
APPROVED REPORT EXAM: Comprehensive 2D, Doppler, and color-flow Echocardiogram Flat Bed Operator: Candie Lee CRT Ht: 5 ft 5 in Wt: 226lbs BSA: 2.08 BP: 146/68 mmHg Indications: Congestive Heart Failure, Atrial Fibrillation, home o2, pulmonary edema 2D Dimensions LVOT 1.68 cm (M/F) 1.5-2.5 M-Mode Dimensions RVDd 2.44 cm (0.9-2.6) LA Diam 4.07 cm (1.9-4.0) LVDd 4.58 cm (3.5-5.7) Ao Diam 2.98 cm (2.0-3.7) LVDs 3.28 cm (3.5-5.7) IVSd 1.17 cm (0.6-1.1) PWd 0.77 cm (0.6-1.1) EF (Teich) 54.80% FS 28.40% EDV (Teich) 96.30 mL ESV (Teich) 43.50 mL LV Diastology E Decel Time 160.00 (160-240 msec) E/A Ratio 4.26 MED E' 9.30 (< 7 cm/sec) E'/MED E' Ratio 11.73 (>14) LAT E' 10.90 (<10 cm/sec) E/LAT E' Ratio 10.01 (>14) Aortic Valve AO Peak GR. 8.20 mmHg Mitral Valve MV A Velocity 26.00 (40-130 cm/s) E/A Ratio 4.26 MV Decel. Time 160.00 (160-240 ms) Pulmonary Valve PV Peak Velocity 90.00 (50-150 cm/s) Tricuspid Valve TR P. Velocity 257.00 cm/s RAP Estimate 10.00 mmHg RVSP 36.50 mmHg Left Ventricle Left atrium is mildly enlarged, left ventricle is normal size, mild concentric left ventricular hypertrophy, visually estimated ejection fraction 50% with no regional wall motion abnormality, diastolic parameters are inconclusive. Right Ventricle Right atrium and right ventricle mildly enlarged with normal contractility. Aortic Valve Aortic valve is minimally thickened and fibrosed. There is no aortic stenosis or aortic insufficiency. Mitral Valve Mitral valve is grossly normal, there is mild mitral regurgitation. Tricuspid Valve Tricuspid valve is grossly normal, there is mild tricuspid regurgitation, tricuspid regurgitation jet velocity is inadequate for calculation of the right ventricular systolic pressure. Pulmonic Valve Pulmonic valve is poorly visualized. Great Vessels Aortic root is normal size. Pericardium Trivial pericardial effusion noted Conclusion 1. Mild biatrial enlargement, normal left ventricular size, mild concentric left ventricular hypertrophy, visually estimated ejection fraction 50% with no regional wall motion abnormality, diastolic parameters are inconclusive. 2. Qualitatively mildly enlarged right ventricle with normal contractility. 3. Mild mitral and tricuspid regurgitation. 4. No significant pericardial effusion noted. Electronically signed by : Jhonny Astudillo, 10/03/2020 05:38:24
--- NOTE | 2020-10-02 08:30 | HMH.DCSUM ---
General - General Admission date:: 10/01/20 Discharge date: 10/02/20 HPI HPI: 65-year-old white female, patient of Dr. Ahn, who has a history of CHF, atrial fibrillation oxygen dependent, who came to our hospital emergency department with 3 hours of shortness of air that was not relieved by her home oxygen. In the emergency department found to have evidence of acute on chronic CHF with pulmonary edema symptoms, increased interstitial markings and elevated BNP levels. Responded well to diuretics in the ER but continued to be dyspneic and was admitted to hospital for further diuresis and reevaluation of her medication regimen. She reports compliance with her medication but there may have been some question in the ER about whether not she had missed some medications, specifically her anticoagulations therapy. We do not have access to recent outpatient records here. She does remember having an echocardiogram at [facility] in the past year. Hospital Course Hospital Course: 65-year-old female admitted for atrial fibrillation, acute on chronic hypoxemic respiratory failure secondary to CHF exacerbation. Admitted for diuresis. Tolerated diuresis well after receiving 3 doses of Lasix. Was -1 L for hospitalization. This morning on interview states she feels much better and feels at her baseline. Denies any cough, dyspnea above baseline, nausea, vomiting, diarrhea, chest pain. No fevers noted overnight. Hemodynamically stable. Echo was obtained to quantify degree of heart failure, formal read pending at time of discharge. Patient medically stable with improvement after diuresis. Will discharge on home regimen. Instructed her to have close follow-up with her primary care physician. Overall looks good this morning. Plan for discharge home on home regimen. Echo initial read shows preserved EF of 55% with multiple valvular regurgitations, A. fib, and diastolic dysfunction. Formal read still pending. Objective Vital signs: Temp Pulse Resp BP Pulse Ox 98.2 F 65 18 127/65 95 10/02/20 04:00 10/02/20 04:00 10/02/20 04:00 10/02/20 04:00 10/02/20 04:00 Narrative: - *Routine HEENT Exam Head: Present: normocephalic Eye: Present: EOMI, PERRL ENT: Present: mucous membranes moist - *Routine Neck Exam Present: supple. Absent: lymphadenopathy - *Routine Respiratory Exam Present: CTAB, no appreciable crackles in bases - *Routine Cardiovascular Exam Present: irregular rhythm, irregularly irregular - *Routine Abdominal Exam Present: soft, normoactive bowel sounds. Absent: tenderness - *Routine Extremities Exam Present: edema. Absent: cyanosis, clubbing Comments: 1+ edema, chronic stasis changes to legs, skin wrinkly, interval improvement. Healing pressure ulcer on left heel with no drainage. [place] healthy base. - *Routine Skin Exam Present: warm. Absent: rash - *Routine Neurological Exam Present: alert, oriented X3 Results Labs on day of discharge: Labs from last 24 hours 10/02/20 10/02/20 10/02/20 06:00 06:00 05:51 WBC 6.2 D RBC 4.10 L Hgb 12.4 Hct 37.9 MCV 92.5 MCH 30.3 MCHC 32.7 RDW 13.9 Plt Count 162 MPV 8.5 Neut % (Auto) 67.0 Lymph % (Auto) 23.6 [place] % (Auto) 4.1 Eos % (Auto) 4.6 Baso % (Auto) 0.6 Neut # (Auto) 4.2 Lymph # (Auto) 1.5 [place] # (Auto) 0.3 Eos # (Auto) 0.3 Baso # (Auto) 0.0 PT INR D-Dimer Sodium 139 Potassium 4.1 Chloride 100 Carbon Dioxide 35 H Anion Gap 8.1 BUN 34 H Creatinine 1.20 H Estimated Creat Clear 71 Estimated GFR 45 L Est GFR ( Amer) 54 L Glucose 169 H D POC Glucose 159 H Calcium 8.8 Magnesium Total Bilirubin 1.0 AST 23 ALT 15 Alkaline Phosphatase 136 H Troponin I NT-Pro-B Natriuret Pep Total Protein 6.6 Albumin 3.5 Globulin 3.1 Albumin/Globulin Ratio 1.1 Urine Color
== END 2020-10-02 11:50 | disposition home or self-care (01) ==
LOC: ER 10:46 → 2ND 10-02 06:46
PROVIDERS: Physician Assistant; Admitting Provider Internal Medicine Adolescent Medicine; Emergency Provider Emergency Medicine; PCP Family Medicine; Visit Provider Internal Medicine Adolescent Medicine
DX: J96.11 Chronic respiratory failure with hypoxia (principal); Z99.81 Dependence on supplemental oxygen; I48.0 Paroxysmal atrial fibrillation; I11.0 Hypertensive heart disease with heart failure; I50.33 Acute on chronic diastolic (congestive) heart failure; Z87.891 Personal history of nicotine dependence; E11.65 Type 2 diabetes mellitus with hyperglycemia; Z79.4 Long term (current) use of insulin; Z79.01 Long term (current) use of anticoagulants; Z79.899 Other long term (current) drug therapy; Z88.2 Allergy status to sulfonamides
CPT/HCPCS: 36415; 71045; 80053; 81001; 82962; 83735; 83880; 84484; 85025; 85378; 85610; 86328; 93005; 93306; 96374; 99284; G0378

== ENCOUNTER 2020-12-01 13:59 | Observation (INO) | payer MEDICARE, SELFPAY ==
[2020-12-01] VITALS (11 sets, daily range): BP systolic 116–196; BP diastolic 50–119; PULSE 74–106; RESP 18–26; TEMP 36.6–36.9; O2SAT 87–100; BMI 45.3; BMI 38.0
--- NOTE | 2020-12-01 14:05 | HMH.EDSOB ---
ED Disposition Clinical Impression: Acute exacerbation of congestive heart failure Qualifiers: Heart failure type: unspecified Qualified Code(s): I50.9 - Heart failure, unspecified Disposition: Admitted As Inpatient Condition on Discharge: Good Referrals: Ludwig Goldberg [Primary Care Provider] - - Critical Care Critical Care Time: No Attestation: On , the high probability of a clinically significant, sudden or life threatening deterioration of the following system(s) required my full and direct attention, intervention and personal management. The time I documented below is in addition to time spent performing reported procedures but includes the following listed in this critical care notation. Medical Decision Making - Medical Records Medical records reviewed: Yes: I reviewed the patient's medical records. - Moncho Inquiry Pt receiving controlled substance: No Vital Signs: 12/01/20 14:00 12/01/20 14:40 12/01/20 15:30 Temperature 98.4 F Temperature Source Oral Pulse Rate [Right] 98 H 99 H 82 Respiratory Rate 26 H 20 20 Blood Pressure [Right Arm] 196/85 H 168/119 H 165/86 H Blood Pressure Mean [Right Arm] 122 135 112 Blood Pressure Source [Right Arm] Automatic Cuff Blood Pressure Position [Right Arm] Sitting 02 Sat by Pulse Oximetry 90 L 97 100 Oxygen Delivery Method Room Air Oxygen Flow Rate (LPM) 12/01/20 16:06 12/01/20 16:30 12/01/20 16:35 Temperature Temperature Source Pulse Rate [Right] 103 H 99 H Respiratory Rate 20 18 Blood Pressure [Right Arm] 180/71 H 160/81 H Blood Pressure Mean [Right Arm] 107 107 Blood Pressure Source [Right Arm] Blood Pressure Position [Right Arm] 02 Sat by Pulse Oximetry 96 98 87 L Oxygen Delivery Method Nasal Cannula Room Air Oxygen Flow Rate (LPM) 2 12/01/20 16:37 Temperature Temperature Source Pulse Rate [Right] Respiratory Rate Blood Pressure [Right Arm] Blood Pressure Mean [Right Arm] Blood Pressure Source [Right Arm] Blood Pressure Position [Right Arm] 02 Sat by Pulse Oximetry 93 L Oxygen Delivery Method Nasal Cannula Oxygen Flow Rate (LPM) 4 - Lab Data Lab results reviewed: Yes: I reviewed the patient's lab results. Lab Results 12/01/20 14:20: Urine Color Yellow, Urine Appearance Clear, Urine pH 7.5, Ur Specific [place] 1.010, Urine Protein 1+, Urine Glucose (UA) 2+, Urine Ketones Negative, Urine Blood 1+, Urine Nitrate Negative, Urine Bilirubin Negative, Urine Urobilinogen 0.2, Ur Leukocyte Esterase Negative, Urine RBC Occasional, Urine WBC None, Ur Squamous Epith Cells Occasional, Urine Bacteria None 12/01/20 14:20: WBC 9.2, RBC 4.34, Hgb 13.6, Hct 40.2, MCV 92.6, MCH 31.4 H, MCHC 33.9, RDW 14.3, Plt Count 186, MPV 7.8, Neut % (Auto) 78.6, Lymph % (Auto) 12.5, [place] % (Auto) 3.6, Eos % (Auto) 3.9, Baso % (Auto) 1.3, Neut # (Auto) 7.2, Lymph # (Auto) 1.2, [place] # (Auto) 0.3, Eos # (Auto) 0.4, Baso # (Auto) 0.1 12/01/20 14:20: Sodium 137, Potassium 4.8, Chloride 96 L, Carbon Dioxide 34 H, Anion Gap 11.8, BUN 40 H, Creatinine 1.30 H, Estimated Creat Clear 31, Estimated GFR 41 L, Est GFR ( Amer) 50 L, Glucose 347 H, Calcium 9.6, Total Bilirubin 0.9, AST 29, ALT 19, Alkaline Phosphatase 156 H, Troponin I < 0.01, NT-Pro-B Natriuret Pep 779 H, Total Protein 8.4 H D, Albumin 4.4, Globulin 4.0 H, Albumin/Globulin Ratio 1.1 12/01/20 14:20: SARS-CoV-2 IgG Ab (Rapid) Negative, SARS-CoV-2 IgM Ab (Rapid) Negative Result diagrams: 12/01/20 14:20 12/01/20 14:20 Orders (Tests/Meds): ED MEDICATIONS Discontinued Medications Generic Name Dose Route Start Last Admin Trade Name Michaelq PRN Reason Stop Dose Admin Furosemide 60 mg 12/01/20 16:46 12/01/20 16:47 Furosemide 100mg/10ml Vial IV 12/01/20 16:47 60 mg ONCE ONE Administration Iopamidol 70 ml 12/01/20 15:21 12/01/20 15:22 Iopamidol-370 (76%);100ml Bottle IV 12/01/20 15:22 70 ml ONCE ONE Administration Sodium Chloride 50 ml 12/01/20 15:
--- NOTE | 2020-12-01 14:06 | ECG_ITS ---
APPROVED REPORT Exam: Resting ECG HR:113 bpm ECG Measurements Heart Rate 113 AXES QRSd 74 QRS 82 QT 320 T 49 QTc 438 Conclusion Atrial fibrillation with rapid ventricular response Abnormal ECG Electronically signed by : Sohan Gibson, 12/01/2020 19:30:10
--- NOTE | 2020-12-01 14:10 | CT_ITS ---
PROCEDURE: CT ANGIO CHEST Referring Doctor: Yimi Costa Patient Age:65Y CLINCIAL INDICATION: PE? Dyspnea. Weakness. History of atrial fibrillation, diabetic COMPARISON: CT CT ABDOMEN PELVIS WO CON from 06/13/2020 the prior chest films the TECHNIQUE: IV Contrast: Bolus 70ML Isovue 370 followed by 40 cc saline Helical axial images obtained with thick MIP slab sagittal and coronal reformats. All CT scans at the facility use one or more dose reduction, viz: automated exposure control, ma/kV adjustment per patient size (including targeted exams where dose is matched to indication, i.e. head), or iterative reconstruction technique. FINDINGS: PULMONARY ARTERIES: Excellent contrast enhancement and visualization. No pulmonary embolus evident. AORTA: No acute finding. No thoracic aortic aneurysm or dissection evident the LUNGS: . . Basilar atelectasis of most evident at the posterior right lung base associated shaded with some minimal fluid along fissures only question some subtle wispy ground-glass changes at the right middle lobe right upper lobe. Equivocal . Rather linear areas density anterior right middle lobe more likely reflecting atelectasis and scarring. (Sagittal image 24 along) although difficult to exclude some mild associated inflammatory changes here. LEFT LUNG:. Favor atelectasis along with some scarring at the medial left lung base. Again difficult to exclude early infiltrate associated Tiny patchy focus of density anterior NORMA adjacent to the left heart border, sagittal image 65. Again a somewhat linear in favor atelectasis and scarring here as well. PLEURAL SPACES: Small bilateral pleural effusions. No evidence of pneumothorax. HEART: Upper normal heart size. No significant pericardial effusion. Coronary artery calcification. Left and right atria appear perhaps slightly generous MEDIASTINAL AND HILAR STRUCTURES: No mediastinal or hilar mass evident. Of no clearly pathologic adenopathy. Generous upper normal mediastinal nodes as below. Upper normal nodes towards the right eitan inferiorly, axial image 53 again these may be reactive nodes but should be kept in mind. There is a generous azygos vein which can be seen with increased central venous pressure LYMPH NODES: High moderate size node precarinal region 20 mm length 12 mm the transverse and AP.. Upper normal in size. Also generous upper normal lymph lymph node is seen anterior to the left pulmonary artery and extending inferiorly. It measures 2.8 cm in length x 10 mm . Upper normal 13 x 10 mm right paratracheal lymph node. BONY STRUCTURES: No acute bony abnormalities apparent.. Mild degenerative changes T-spine Hypertrophic facet changes at the lower T-spine of this is most evident T10-11 where hypertrophic facet features encroach upon the right foramen.-Similar but less pronounced features above and below UPPER ABDOMEN: Cholecystectomy adrenals a liver unremarkable spleen upper normal size IMPRESSION: 1. No evidence of pulmonary embolism. Excellent visualization pulmonary arteries. Aorta appears normal 2... Small but notable bilateral pleural effusions with right more evident than left Question some mild vascular engorgement/possible mild vascular congestion-Requires correlation. Heart upper normal in size the the 3.. Few small scattered areas of pulmonary density, most rather linear.. Radiographically currently favor reflect atelectasis, scarring and minimal chronic changes, with some of these areas adjacent fissures accentuated by bilateral pleural fluid.. Doubt but cannot the totally exclude associated early pneumonic infiltrate or inflammatory change. Also very s
[2020-12-01 14:36] LABS: Microscopic, Urine URINE MICROSCOPIC (MICROSCOPIC)
[2020-12-01 14:38] LABS: Appearance,Urine CLEAR (Clear); Basophils # 0.1 K/mm3 (0-0.2); Basophils % 1.3 % (0.1-2.0); Bilirubin,Urine Negative (Negative); Blood, Urine 1+ (Negative); Color,Urine YELLOW (Yellow); Eosinophils # 0.4 K/mm3 (0.0-0.4); Eosinophils % 3.9 % (0.1-12.0); Glucose,Urine (UA) 2+ (Negative); Hematocrit 40.2 % (37.0-47.0); Hemoglobin 13.6 g/dL (12.2-16.2); Ketones,Urine Negative (Negative); Leukocyte Esterase,Urine Negative (Negative); Lymphocytes # 1.2 K/mm3 (0.7-4.5); Lymphocytes % 12.5 % (10-50); Mean Corpuscular HGB Conc 33.9 g/dL (31.8-35.4); Mean Corpuscular Hemoglobin 31.4 pg (27.0-31.2); Mean Corpuscular Volume 92.6 fl (81-99); Mean Platelet Volume 7.8 fl (7.4-10.4); Monocytes # 0.3 K/mm3 (0.1-1.0); Monocytes % 3.6 % (1.7-9.3); Neutrophils # 7.2 K/mm3 (1.8-7.8); Neutrophils % 78.6 % (37.0-80.0); Nitrate,Urine Negative (Negative); PH,Urine 7.5 (5.0-8.5); Platelet Count 186 K/mm3 (142-424); Protein,Urine 1+ (Negative); Red Blood Count 4.34 M/mm3 (4.20-5.40); Red Cell Distribution Width 14.3 % (11.5-17.5); Urobilinogen,Urine 0.2 EU/dl (0.2); White Blood Count 9.2 K/mm3 (4.8-10.8)
[2020-12-01 14:44] LABS: Chloride 96 mmol/L (98-107)
[2020-12-01 14:45] LABS: Potassium 4.8 mmoL/L (3.5-5.1); Sodium 137 mmol/L (136-145)
[2020-12-01 14:47] LABS: Alanine Aminotransferase 19 U/L (12-78); Alkaline Phosphatase 156 U/L (38-126); Aspartate Amino Transferase 29 U/L (14-36); Bilirubin,Total 0.9 mg/dl (0.2-1.3); Blood Urea Nitrogen 40 mg/dl (7-17); Creatinine Clearance Estimated 31 mL/min (50-200); Estimated Glomerular Filt Rate 41 ml/min (>60); GFR (African American) 50 ML/MIN (>60)
[2020-12-01 14:48] LABS: Albumin Level 4.4 g/dl (3.5-5.0); Albumin/Globulin Ratio 1.1 (1.1-1.8); Anion Gap 11.8 mEq/L (5-15); Calcium 9.6 mg/dl (8.4-10.2); Carbon Dioxide 34 mmol/L (22.0-30.0); Glucose 347 mg/dl (74-100); Total Protein,Serum 8.4 g/dl (6.3-8.2)
[2020-12-01 14:53] LABS: RBC,Urine Occasional #/hpf (0-3); Squamous Epithelial Cell,Urine Occasional #/hpf (0-5)
[2020-12-01 14:57] LABS: NT Pro Brain Natriuretic Pep. 779 pg/mL (0-125)
[2020-12-01 15:04] LABS: Troponin I < 0.01 ng/ml (0.00-0.034)
[2020-12-01 15:24] LABS: Coronavirus 19 IgG Antibody Negative (Negative); Coronavirus 19 IgM Antibody Negative (Negative)
--- NOTE | 2020-12-01 16:51 | PC.NURSE ---
PT HAD 1200 OUT PRIOR TO LASIX
--- NOTE | 2020-12-01 17:10 | PC.NURSE ---
called floor informed that pt is ready for admission
--- NOTE | 2020-12-01 17:28 | HMH.HP ---
*Admission Date: 12/01/20 *Chief complaint: soa *History of present illness: 65-year-old female with a past medical history significant for hypertension, hyperlipidemia, diabetes mellitus, atrial fibrillation, CHF, COPD who wears oxygen at night who presents to the emergency department for evaluation of shortness of breath that has been ongoing for a few days. Pt states she seen her pcp and was placed on steroids. Pt states her breathing whenever she gets up to move around. Pt states she has been using her nebulizers with no relief of symptoms. No fevers. Pt states she does not take her coumidin for a fib. Pt states she has gained around 18 pounds in 3 weeks. Pt states she feels this way when her CHF is out of control. Pt admitted for chf and echo with cardiology consult [facility] History I have reviewed the patient's past medical history: Yes Medical History: Reports:: Arrhythmia, Atrial Fibrillation, Congestive Heart Failure, Cerebrovascular Accident, Diabetes Mellitus Type 2, Hypertension Denies:: Cancer, MRSA *Have you ever received a pneumonia vaccine?: Yes *Have you received a flu vaccine this season?: Yes Other Medical History: Reports: Cataracts (bilateral) Other Surgeries: Yes: Appendectomy, Cholecystectomy, Hysterectomy-Partial, Tubal Ligation Amputation: No - *Social History Smoking Status: Former smoker Alcohol Intake: never *Occupational Status:: disabled Housing: house Household Members: spouse, children *Travel in the last 8 weeks: None Family Hx:: Cancer, Diabetes, Heart Attack Review of Systems - Review of Systems Review of systems:: pertinent systems reviewed and negative unless documented below - Constitutional Reports malaise, Denies body ache(s), Denies fever(s) - Eyes Denies blurry vision - ENT Denies bleeding gums, Denies nose pain - *Cardiovascular Reports shortness of breath, Reports shortness of breath with activity, Reports generalized swelling, Reports irregular heart rhythm, Denies chest pain at rest, Denies foot swelling - *Respiratory Reports cough, Reports shortness of breath, Reports shortness of breath with activity, Denies chest congestion - *Gastrointestinal Denies nausea, Denies vomiting - *Genitourinary Denies abnormal vaginal bleeding - *Musculoskeletal Denies joint pain, Denies muscle weakness - Integumentary/Breasts Denies change in hair, Denies rash - *Neurologic Denies dizziness - Psychiatric Denies anxiety - Endocrine Denies excessive sweating - Hematologic/Lymphatic Denies enlarged lymph nodes - Allergic/Immunologic Denies itchy eyes Meds Home Medications Medication Instructions Recorded Confirmed Type Atorvastatin Calcium [Lipitor 20mg 20 mg PO HS 06/14/20 12/01/20 History Tab] Clopidogrel Bisulfate [Clopidogrel 75 mg PO DAILY 06/14/20 12/01/20 History 75mg Tab] Collagenase Clostridium Hist. 1 applicatio TOPICAL DIRECTED 06/14/20 12/01/20 History [Santyl] Insulin NPH Hum/Reg Insulin Hm 65 units SQ BIDWM 06/14/20 12/01/20 History [Novolin 70-30 100 Unit/ml Vial] Insulin Regular, Human [Novolin R] 0 units SQ AC 06/14/20 12/01/20 History Tramadol HCl [Tramadol 50mg 50 mg PO TIDP PRN 06/14/20 12/01/20 History Tab] cloNIDine HCL [cloNIDine 0.2mg 0.2 mg PO BID 06/14/20 12/01/20 History Tablet] Potassium Chloride [K-Tab ER 20 20 meq PO BID #60 tab 06/15/20 12/01/20 Rx mEq] Metoprolol Tartrate [Lopressor 50 mg PO TID 10/01/20 12/01/20 History 50mg tablet] Spironolactone [Spironolactone 25 mg PO DAILY 10/01/20 12/01/20 History 25mg Tablet] Torsemide [Demadex] 20 mg PO DAILY 10/01/20 12/01/20 History Cetirizine HCl 10 mg PO DAILY 12/01/20 12/01/20 History Isosorbide Mononitrate [Isosorbide 30 mg PO DAILY 12/01/20 12/01/20 History Mononitrate ER] Pantoprazole Sodium 40 mg PO DAILY 12/01/20 12/01/20 History predniSONE [Prednisone 20mg 20 mg PO DAILY 12/01/20 12/01/20 History Tab] Al
--- NOTE | 2020-12-01 18:07 | PC.NURSE ---
Paged Dr Negrete for this pt. Returned call [phone].
--- NOTE | 2020-12-01 19:51 | PC.NURSE ---
THIS RN COMPLETED MED REC. PATIENT STATES THAT SHE DOES TAKE GABAPENTIN BUT DOES NOT KNOW DOSAGE. PATIENT STATED THAT SHE WILL HAVE FAMILY BRING IN LIST.
--- NOTE | 2020-12-01 20:20 | PC.NURSE ---
PT ASSESSED AT THIS TIME. BILATERAL LUNG SOUNDS CLEAR. EDEMA NOTED TO BILATERAL LOWER EXTREMITIES +2 PITTING. BLE CELLULITIS NOTED THAT IS RED AND WARM TO THE TOUCH. INDWELLING CATHETER PATENT AND DRAINING CLEAR YELLOW URINE. PT STATES THAT SHE FEELS BETTER THAN WHEN SHE GOT HERE AND STATES THAT HER EDEMA HAS GOTTEN BETTER SINCE SHES BEEN HERE. WILL CONTINUE TO OBSERVE.
--- NOTE | 2020-12-01 20:30 | PC.NURSE ---
PT STATES THAT SHE TAKES PILLS CRUSHED AND IN PUDDING OR YOGURT.
[2020-12-02] VITALS (7 sets, daily range): BP systolic 149–197; BP diastolic 66–113; PULSE 65–84; RESP 18–20; TEMP 36.7–37; O2SAT 96–100; BMI 37.3
[2020-12-02 07:01] LABS: Basophils # 0.1 K/mm3 (0-0.2); Basophils % 0.8 % (0.1-2.0); Eosinophils # 0.2 K/mm3 (0.0-0.4); Eosinophils % 2.9 % (0.1-12.0); Hematocrit 41.3 % (37.0-47.0); Hemoglobin 13.5 g/dL (12.2-16.2); Lymphocytes # 1.5 K/mm3 (0.7-4.5); Lymphocytes % 18.2 % (10-50); Mean Corpuscular HGB Conc 32.7 g/dL (31.8-35.4); Mean Corpuscular Volume 94.8 fl (81-99); Mean Platelet Volume 8.4 fl (7.4-10.4); Monocytes # 0.3 K/mm3 (0.1-1.0); Monocytes % 3.8 % (1.7-9.3); Neutrophils % 74.3 % (37.0-80.0); Platelet Count 185 K/mm3 (142-424); Red Blood Count 4.35 M/mm3 (4.20-5.40); Red Cell Distribution Width 14.1 % (11.5-17.5); White Blood Count 8.1 K/mm3 (4.8-10.8)
[2020-12-02 07:12] LABS: Anion Gap 12.1 mEq/L (5-15); Blood Urea Nitrogen 34 mg/dl (7-17); Calcium 9.4 mg/dl (8.4-10.2); Carbon Dioxide 38 mmol/L (22.0-30.0); Chloride 94 mmol/L (98-107); Creatinine Clearance Estimated 74 mL/min (50-200); Estimated Glomerular Filt Rate 45 ml/min (>60); GFR (African American) 54 ML/MIN (>60); Glucose 316 mg/dl (74-100); Potassium 4.1 mmoL/L (3.5-5.1); Sodium 140 mmol/L (136-145)
--- NOTE | 2020-12-02 07:34 | PC.NURSE ---
REPORT GIVEN TO Zelalem SHARP RN
--- NOTE | 2020-12-02 09:17 | HMH.ACPN2 ---
Internal Medicine - PN: Subj *Date: 12/02/20 *Time: 09:17 Interval history: doing better- vital signs and labs and meds reviewed - hr improved Exam Vital signs and Labs for Last 24 Hours: Temp Pulse Resp BP Pulse Ox 98.4 F 66 20 149/113 H 97 12/02/20 08:00 12/02/20 08:00 12/02/20 08:00 12/02/20 08:00 12/02/20 08:00 Laboratory Results - last 24 hr 12/01/20 14:20: Urine Color Yellow, Urine Appearance Clear, Urine pH 7.5, Ur Specific [place] 1.010, Urine Protein 1+, Urine Glucose (UA) 2+, Urine Ketones Negative, Urine Blood 1+, Urine Nitrate Negative, Urine Bilirubin Negative, Urine Urobilinogen 0.2, Ur Leukocyte Esterase Negative, Urine RBC Occasional, Urine WBC None, Ur Squamous Epith Cells Occasional, Urine Bacteria None 12/01/20 14:20: WBC 9.2, RBC 4.34, Hgb 13.6, Hct 40.2, MCV 92.6, MCH 31.4 H, MCHC 33.9, RDW 14.3, Plt Count 186, MPV 7.8, Neut % (Auto) 78.6, Lymph % (Auto) 12.5, Benson % (Auto) 3.6, Eos % (Auto) 3.9, Baso % (Auto) 1.3, Neut # (Auto) 7.2, Lymph # (Auto) 1.2, Benson # (Auto) 0.3, Eos # (Auto) 0.4, Baso # (Auto) 0.1 12/01/20 14:20: Sodium 137, Potassium 4.8, Chloride 96 L, Carbon Dioxide 34 H, Anion Gap 11.8, BUN 40 H, Creatinine 1.30 H, Estimated Creat Clear 31, Estimated GFR 41 L, Est GFR ( Amer) 50 L, Glucose 347 H, Calcium 9.6, Total Bilirubin 0.9, AST 29, ALT 19, Alkaline Phosphatase 156 H, Troponin I < 0.01, NT-Pro-B Natriuret Pep 779 H, Total Protein 8.4 H D, Albumin 4.4, Globulin 4.0 H, Albumin/Globulin Ratio 1.1 12/01/20 14:20: SARS-CoV-2 IgG Ab (Rapid) Negative, SARS-CoV-2 IgM Ab (Rapid) Negative 12/02/20 06:46: WBC 8.1, RBC 4.35, Hgb 13.5, Hct 41.3, MCV 94.8, MCH 31.0, MCHC 32.7, RDW 14.1, Plt Count 185, MPV 8.4, Neut % (Auto) 74.3, Lymph % (Auto) 18.2, Benson % (Auto) 3.8, Eos % (Auto) 2.9, Baso % (Auto) 0.8, Neut # (Auto) 6.0, Lymph # (Auto) 1.5, Benson # (Auto) 0.3, Eos # (Auto) 0.2, Baso # (Auto) 0.1 12/02/20 06:46: Sodium 140, Potassium 4.1, Chloride 94 L, Carbon Dioxide 38 H, Anion Gap 12.1, BUN 34 H, Creatinine 1.20 H, Estimated Creat Clear 74, Estimated GFR 45 L, Est GFR ( Amer) 54 L, Glucose 316 H, Calcium 9.4 I & O for Last 24 hours: Intake & Output 11/29/20 11/30/20 12/01/20 12/02/20 11:59 11:59 11:59 11:59 Intake Total 600 / 600 Output Total 2850 / 2850 Balance -2250 / -2250 Weight 224 lb 6 oz - Constitutional no acute distress, obese - *Routine HEENT Exam Head: Present: normocephalic Eye: Present: EOMI, PERRL ENT: Present: mucous membranes dry - *Routine Neck Exam Present: supple. Absent: JVD - *Routine Respiratory Exam Present: decreased breath sounds - *Routine Cardiovascular Exam Present: irregular rhythm - *Routine Abdominal Exam Present: soft - *Routine Extremities Exam Present: cyanosis - *Routine Skin Exam Present: intact Comments: changes lower ext consistent with cellulitis bilat - *Routine Neurological Exam Present: alert, oriented X3, CN II-XII intact - Routine Psychiatric Exam Present: normal affect Assessment and Plan (1) Diabetes Status: Acute Qualifiers: Diabetes mellitus type: type 2 Category: Medical Code(s): E11.9 - Type 2 diabetes mellitus without complications (2) CHF exacerbation Problem details: diastolic, medical management. Status: Acute Qualifiers: Heart failure type: unspecified Qualified Code(s): I50.9 - Heart failure, unspecified Category: Medical Code(s): I50.9 - Heart failure, unspecified (3) Atrial fibrillation with rapid ventricular response Problem details: On Plavix only, unclear as to why this is. Would benefit from anticoagulation for her A. fib with either warfarin or aspirin given valvular dysfunction and risk stratification. Will defer to primary care Status: Acute Category: Medical Code(s): I48.91 - Unspecified atrial fibrillation (4) Hypertension Status: Chronic Category: Medical Code(s): I10 - Essential (primary) hypertension
--- NOTE | 2020-12-02 09:26 | XR_ITS ---
PROCEDURE: XR CHEST 2V Referring Doctor: Ludwig Benitez Patient Age:65Y CLINICAL HISTORY: sob History of hypertension diabetes atrial fibrillation CHF COPD wears oxygen at night COMPARISON: CR CXR CHEST(2 VIEWS-NOT PORTABLE) from 05/25/2014 CR CXR1 CHEST-PORTABLE from 12/24/2014 CR XR CHEST PORTABLE from 10/01/[address] ANGIO CHEST from 12/01/2020 FINDINGS: Definite right pleural effusion with notable blunting at the posterior sulcus and right CP angle. This is developed since September 2020 chest film but was likely visualized on yesterday's CT chest, with right pleural effusion of noted to be larger than the small left pleural effusion. I suspect there is some mild resolving CHF likely-noting some generous pulmonary vascularity towards upper lobes and scant residual septal lines towards left lung base with some mild accentuation of interstitial markings. However these features today slightly less pronounced than is CHF pattern on prior 10/01/2020 CXR . Mild cardiomegaly today. Hilar regions appear similar to previous studies. Right eitan is more generous than the left but stable. Mediastinum appears similar to previous studies as well today's chest film slightly rotated to the left at superior chest Chest wall in T-spine unremarkable 1 IMPRESSION: . Definite right pleural effusion with with notable blunting and meniscus at right posterior sulcus and CP angle . Suspect scant left pleural effusion . Appearance suggest mild residual CHF superimposed upon mild chronic changes. Mild cardiomegaly. . No discrete focal pneumonia Dictated by: Avery Olivares MD 12/02/2020 14:06 Avery Olivares MD in [place] 12/02/2020 14:06
--- NOTE | 2020-12-02 10:16 | HMH.PHAVTE ---
[facility] Pharmacy VTE Monitoring - Patient Demographics Admission date: 12/01/20 Report Date: 12/02/20 Time: 10:16 Allergies/Adverse Reactions: Patient Allergies sulfamethoxazole [From Sulfamethoxazole-Trimethoprim] Allergy (Verified 06/14/20 05:30) Hives trimethoprim [From Sulfamethoxazole-Trimethoprim] Allergy (Verified 06/14/20 05:30) Hives Height: 1.65 m Weight: 101.775 kg Patient Problems: Current Active Problems Hypertension (Chronic) Renal insufficiency (Acute) Atrial fibrillation with rapid ventricular response (Acute) CHF exacerbation (Acute) Diabetes (Acute) Cellulitis (Acute) Obesity (BMI 30-39.9) (Acute) COPD (chronic obstructive pulmonary disease) (Acute) Hyperlipidemia (Acute) HTN (hypertension) (Acute) - VTE Risk Labs: VTE Related Lab Results Hgb 13.5 g/dL (12.2-16.2) 12/02/20 06:46 Hct 41.3 % (37.0-47.0) 12/02/20 06:46 Plt Count 185 K/mm3 (142-424) 12/02/20 06:46 BUN 34 mg/dl (7-17) H 12/02/20 06:46 Creatinine 1.20 mg/dl (0.52-1.04) H 12/02/20 06:46 Estimated Creat Clear 74 mL/min (50-200) 12/02/20 06:46 VTE Risk Level: Moderate Risk - Prophylaxis VTE Prophylaxis Ordered?: Yes Types of VTE Prophylaxis: TEDS Knee High Location of Applied Device: Bilateral Lower Extremeties
[2020-12-02 10:30] LABS: Adenovirus,PCR Not Detected (NotDetected); Bordetella Pertussis Not Detected (NotDetected); Chlamydophila Pneumoniae, PCR Not Detected (NotDetected); Coronavirus 19, PCR Not Detected (NotDetected); Coronavirus 229E Not Detected (NotDetected); Coronavirus NL63 Not Detected (NotDetected); Coronavirus OC43 Not Detected (NotDetected); Coronovirus HKU1,PCR Not Detected (NotDetected); Human Metapneumovirus Not Detected (NotDetected); Influenza A, PCR Not Detected (NotDetected); Influenza AH1, 2009 Not Detected (NotDetected); Influenza AH1, PCR Not Detected (NotDetected); Influenza AH3,PCR Not Detected (NotDetected); Influenza B, PCR Not Detected (NotDetected); Mycoplasma Pneumoniae, PCR Not Detected (NotDetected); Parainfluenza 1, PCR Not Detected (NotDetected); Parainfluenza 2, PCR Not Detected (NotDetected); Parainfluenza 3, PCR Not Detected (NotDetected); Parainfluenza 4, PCR Not Detected (NotDetected); Respiratory Syncytial Virus Not Detected (NotDetected); Rhinovirus/Enterovirus Not Detected (NotDetected)
--- NOTE | 2020-12-02 10:30 | PC.NURSE ---
PT STATES THAT SHE CANNOT TAKE PO MEDS WHOLE AND HAS ASKED THEY BE CRUSHED. CONTACTED PHARM TO DETERMINE WHICH MEDS CAN BE CRUSHED AWAITING CALL BACK.
[2020-12-02 11:43] LABS: POC Glucose,Bedside 328 (70-110)
[2020-12-02 12:26] LABS: POC Glucose,Bedside 306 (70-110)
--- NOTE | 2020-12-02 13:23 | ECG_ITS ---
APPROVED REPORT Exam: Resting ECG HR:66 bpm ECG Measurements Heart Rate 66 AXES QRSd 78 QRS 73 QT 442 T 78 QTc 463 Conclusion Atrial fibrillation Abnormal ECG Electronically signed by : Sohan Gibson, 12/03/2020 05:56:37
--- NOTE | 2020-12-02 18:09 | PC.NURSE ---
SHE IS AOX4, ABLE TO MAKE NEEDS KNOWN TO STAFF, SHE DID C/O SOB. THIS NURSE CONTACTED DR MAHONEY REAL ESTATE PROFESSIONAL WHO ORDERED DUONEBS PRN FOR SOB, SHE HAS TOLERATED DIET WELL, REQUIRES 2LNC.
[2020-12-02 21:47] LABS: POC Glucose,Bedside 368 (70-110)
[2020-12-02 22:15] LABS: POC Glucose,Bedside 403 (70-110)
[2020-12-03] VITALS: BP 92/62; PULSE 69; RESP 18; TEMP 36.8; O2SAT 94
[2020-12-03 03:48] VITALS: BP 144/75; PULSE 63; RESP 16; TEMP 36.9; O2SAT 97
--- NOTE | 2020-12-03 04:15 | PC.NURSE ---
PT HAS RESTED WELL THIS SHIFT, PT A&O X 4. O2 AT 2L/NC. PT DENIES SHORTNESS OF BREATH. VSS. PT WITH DRY HACKY COUGH THAT SHE DESCRIBES ALLERGIES F/C PATENT WITH CLEAR YELLOW URINE. REDNESS AND 2+ EDEMA NOTED TO BLE, UNCHANGED FROM EARLIER ASSESSMENT. PT DENIES NEEDS OR CONCERNS. CALL LIGHT WITHIN REACH. WILL CONTINUE TO MONITOR
[2020-12-03 05:36] LABS: POC Glucose,Bedside 104 (70-110)
[2020-12-03 05:40] VITALS: BMI 37.0
[2020-12-03 06:57] LABS: Basophils # 0.1 K/mm3 (0-0.2); Eosinophils # 0.4 K/mm3 (0.0-0.4); Hematocrit 39.5 % (37.0-47.0); Hemoglobin 13.2 g/dL (12.2-16.2); Lymphocytes # 1.9 K/mm3 (0.7-4.5); Lymphocytes % 19.7 % (10-50); Mean Corpuscular HGB Conc 33.3 g/dL (31.8-35.4); Mean Platelet Volume 7.7 fl (7.4-10.4); Monocytes # 0.3 K/mm3 (0.1-1.0); Monocytes % 3.4 % (1.7-9.3); Neutrophils # 7.1 K/mm3 (1.8-7.8); Neutrophils % 71.9 % (37.0-80.0); Platelet Count 195 K/mm3 (142-424); Red Blood Count 4.25 M/mm3 (4.20-5.40); Red Cell Distribution Width 14.1 % (11.5-17.5); White Blood Count 9.8 K/mm3 (4.8-10.8)
[2020-12-03 07:11] LABS: Anion Gap 10.3 mEq/L (5-15); Blood Urea Nitrogen 37 mg/dl (7-17); Calcium 9.2 mg/dl (8.4-10.2); Carbon Dioxide 38 mmol/L (22.0-30.0); Chloride 97 mmol/L (98-107); Creatinine Clearance Estimated 68 mL/min (50-200); Estimated Glomerular Filt Rate 41 ml/min (>60); GFR (African American) 50 ML/MIN (>60); Glucose 121 mg/dl (74-100); Potassium 4.3 mmoL/L (3.5-5.1); Sodium 141 mmol/L (136-145)
[2020-12-03 08:00] VITALS: BP 146/68; PULSE 79; RESP 19; TEMP 36.7; O2SAT 98
--- NOTE | 2020-12-03 08:30 | PC.NURSE ---
PT ASSESSED AT THIS TIME. GENERALIZED EDEMA NOTED TO BLE. BILATERAL LUNGS DIMINSHED THROUGHOUT. INDWELLING CATHETER IS PATENT AND DRAINING FREELY. PT HAS O2 2L NC. PT PLANS TO GET UP IN CHAIR LATER. DENIES ANY PAIN. WILL CONTINUE TO OBSERVE.
--- NOTE | 2020-12-03 09:52 | HMH.PTEV ---
Physical Therapy Evaluation Rehab PT IP Evaluation Start: 12/03/20 09:10 Freq: ONCE Status: Active Protocol: Document 12/03/20 09:50 EDILBERTO (Rec: 12/03/20 09:52 EDILBERTO [id number]) Subjective/History History History 65-year-old female with a past medical history significant for hypertension, hyperlipidemia, diabetes mellitus, atrial fibrillation, CHF, COPD who wears oxygen at night who presents to the emergency department for evaluation of shortness of breath that has been ongoing for a few days. Pt states she seen her pcp and was placed on steroids. Pt states her breathing whenever she gets up to move around. Pt states she has been using her nebulizers with no relief of symptoms. Subjective Subjective Pt reports she does not ambulate at home uses EWC for motivation - pt does trnasfer ind at home Rehab PT IP Eval Objective Appearance Patient Behavior Appropriate,Cooperative Patient Orientation Person,Place,Time Difficulty following instructions none Speech Pattern Clear,Appropriate Ambulation Patient Able to Ambulate Yes Ambulation Observation IP General Gait Pattern Observation Shuffling Step Ambulation Distance (feet) 2 Ambulation Assistive Device None Ambulation Ability Supervision/Stand by,Contact Guard/Hand Hold Balance Ability to Arise Able, uses arms to help Sitting Balance Steady, safe Standing Balance Steady, wide stance Dynamic Sitting Balance Ability Good Dynamic Standing Balance Ability Poor Transfers Bed Transfer Ability Independent Chair Transfer Ability Independent Sit to Stand Bed Transfer Ability Supervision/Stand by Sit to Stand Chair Transfer Ability Supervision/Stand by Rehab PT IP prob,goals,plan Problems Date of Evaluation: 12/03/20 PT IP Problems Transfers,Gait,Safety Rehab Potential Rehab Potential Good Equipment Needs Assistive Devices Rolling / Wheeled Walker Plan PT Intervention Plan Bed Mobility,Transfers,Gait, Self care,Safety,Therapeutic
--- NOTE | 2020-12-03 10:03 | HMH.CNCARD ---
<Stacie Thompson - Last Filed: 12/03/20 10:04> History of Present Illness Consult date: 12/03/20 Requesting physician: Ludwig Benitez Consult reason: atrial fibrillation Chief complaint: soa, much improved now History of present illness: This is a 65-year-old female who presented to the emergency department with complaints of shortness of breath that been ongoing for the last several days. The patient states that she had gained about 18 pounds in 3 weeks and felt as if her CHF was out of control. The patient was admitted to the hospital and treated for CHF and now she states her shortness of breath is much better. She states that she still has a little shortness of breath with exertion but this is nothing like it was when she came into the hospital and she is feeling much better. She denies any chest pain or pressure. She states her edema is much better as well. She denies any fever, chills, nausea, vomiting, diarrhea or PND. The patient is in chronic atrial fibrillation and only on Plavix for history of stroke. The patient reports that she is to be on Eliquis but has stopped taking this medication because it was too costly. She was switched to Coumadin and she no longer takes this medication because she knows somebody who on this medicine and she just refuses to take it. We have discussed the risks of her having a stroke due to her atrial fibrillation and the patient is aware of her wrist but states that she will not take Coumadin. [facility] History I have reviewed the patient's past medical history: Yes Medical History: Reports:: Arrhythmia, Atrial Fibrillation, Congestive Heart Failure, Cerebrovascular Accident, Diabetes Mellitus Type 2, Hypertension, MRSA Denies:: Cancer, Diabetes Mellitus Type 1 *Have you ever received a pneumonia vaccine?: Yes *Have you received a flu vaccine this season?: Yes Other Medical History: Reports: Cataracts (bilateral) Other Surgeries: Yes: Appendectomy, Cholecystectomy, Hysterectomy-Partial, Tubal Ligation Amputation: No - *Social History Smoking Status: Former smoker # Packs/Day (cigarettes): 1 Alcohol Intake: never *Occupational Status:: disabled Housing: house Household Members: spouse, family *Travel in the last 8 weeks: None Family Hx:: Cancer, Diabetes, Heart Attack Meds Home Medications Medication Instructions Recorded Confirmed Type Atorvastatin Calcium [Lipitor 20mg 20 mg PO HS 06/14/20 12/02/20 History Tab] Clopidogrel Bisulfate [Clopidogrel 75 mg PO DAILY 06/14/20 12/01/20 History 75mg Tab] Collagenase Clostridium Hist. 1 applicatio TOPICAL DIRECTED 06/14/20 12/01/20 History [Santyl] Insulin NPH Hum/Reg Insulin Hm 65 units SQ BIDWM 06/14/20 12/01/20 History [Novolin 70-30 100 Unit/ml Vial] Insulin Regular, Human [Novolin R] 0 units SQ AC 06/14/20 12/01/20 History Tramadol HCl [Tramadol 50mg 50 mg PO TIDP PRN 06/14/20 12/01/20 History Tab] cloNIDine HCL [cloNIDine 0.2mg 0.2 mg PO BID 06/14/20 12/01/20 History Tablet] Potassium Chloride [K-Tab ER 20 20 meq PO BID #60 tab 06/15/20 12/01/20 Rx mEq] Metoprolol Tartrate [Lopressor 50 mg PO TID 10/01/20 12/01/20 History 50mg tablet] Torsemide [Demadex] 20 mg PO DAILY 10/01/20 12/01/20 History Cetirizine HCl 10 mg PO DAILY 12/01/20 12/02/20 History Fluticasone Propionate 2 sprays INHALATION DAILY 12/01/20 12/01/20 History Isosorbide Mononitrate [Isosorbide 30 mg PO HS 12/01/20 12/01/20 History Mononitrate ER] Pantoprazole Sodium 40 mg PO HS 12/01/20 12/02/20 History predniSONE [Prednisone 20mg 20 mg PO DAILY 12/01/20 12/01/20 History Tab] Isosorbide Mononitrate [Imdur 30mg 30 mg PO HS 12/02/20 12/02/20 History ER tablet] Allergies Allergy/AdvReac Type Severity Reaction Status Date / Time sulfamethoxazole Allergy Hives Verified 06/14/20 05:30 [From Sulfamethoxazole-Trimethoprim] trimethoprim Allergy Hives Verified 06/14/20 05:30 [From Sulfamethoxaz
--- NOTE | 2020-12-03 11:29 | HMH.OTEV ---
OT Inpatient Evaluation Rehab OT IP Evaluation Start: 12/03/20 09:10 Freq: ONCE Status: Complete Protocol: Document 12/03/20 11:17 NELA (Rec: 12/03/20 11:29 THANIAMOHAMUD [id number]) Rehab OT IP Assessment Subjective History 65-year-old female with a past medical history significant for hypertension, hyperlipidemia, diabetes mellitus, atrial fibrillation, CHF, COPD who wears oxygen at night who presents to the emergency department for evaluation of shortness of breath that has been ongoing for a few days. Pt states she seen her pcp and was placed on steroids. Pt states her breathing whenever she gets up to move around. Pt states she has been using her nebulizers with no relief of symptoms. No fevers. Pt states she does not take her coumidin for a fib. Pt states she has gained around 18 pounds in 3 weeks. Pt states she feels this way when her CHF is out of control. Pt admitted for chf and echo with cardiology consult Subjective I can try to walk. Instructed Patient on proper hand/foot placement to complete sit<->stand and SPT with usage of RW requiring SBA . No LOB. Instructed Patient on safety awareness to ambulate within the environment ~50ft with usage of RW. No LOB. Instructed Patient on ADL re-training to d/d B socks independently. Objective Patient Orientation Person,Place,Name,Age,Year, Situation Upper Extremity Gross ROM WNL Transfer Training Sit/Stand Transfer Assist Level Supervision/Stand by Chair Transfer Ability Supervision/Stand by Chair Transfer Technique Sit to/from Ambulatory Chair Transfer Assistive Devices Rolling Walker Lower Body Dressing Ability Independent Rehab OT IP prob,goals,plan Problems
--- NOTE | 2020-12-03 11:43 | SW/DCPLANNER ---
Addendum entered by Carlyn Crook 12/06/20 11:19: Patient did not answer at this time and does not have a voicemail set up. I will attempt to contact this patient again later today. Addendum entered by Carlyn Crook 12/06/20 11:18: Flora has called back stating that due to patient recently moving and having out of state insurance this will need to changed to [place] (per Anais Goldberg as well). I will call and inform this patient. Addendum entered by Carlyn Crook 12/04/20 11:44: Flora with [facility] has stated that patient information has been reviewed and services will begin tomorrow for this patient. Addendum entered by [facility] 12/04/20 10:00: Patient information and order has been faxed to [facility]. Patient discharged home yesterday: I will follow up with [facility] once patient information is reviewed. Original Note: I have spoke with this patient regarding discharge plans: reside at home in [place] with her family. Patient stated that she has all DME that she needs at home and does have home O2. I have discussed home health services with this patient: patient is agreeable to home health. Patient has chose to use [facility] of . I will fax patient information/order to [facility] once patient is medically stable for discharge. Per MD patient could potentially discharge later today or tomorrow.
--- NOTE | 2020-12-03 12:00 | PC.NURSE ---
PT AMBULATING IN [place] WITH WALKER WITH PHYSICAL THERAPIST
[2020-12-03 12:17] LABS: POC Glucose,Bedside 340 (70-110)
--- NOTE | 2020-12-03 14:19 | PC.NURSE ---
Addendum entered by Jailene Gonzalez RN 12/03/20 14:20: THIS HAPPENED AT 0930 Original Note: INDWELLING CATH DC'D AT THIS TIME. PT TOLERATED WELL. 200 ML NOTED IN BAG.
[2020-12-03 14:59] VITALS: BMI 37.0
--- NOTE | 2020-12-03 15:55 | HMH.DCSUM ---
General - General Admission date:: 12/01/20 Discharge date: 12/03/20 HPI HPI: 65-year-old female with a past medical history significant for hypertension, hyperlipidemia, diabetes mellitus, atrial fibrillation, CHF, COPD who wears oxygen at night who presents to the emergency department for evaluation of shortness of breath that has been ongoing for a few days. Pt states she seen her pcp and was placed on steroids. Pt states her breathing whenever she gets up to move around. Pt states she has been using her nebulizers with no relief of symptoms. No fevers. Pt states she does not take her coumidin for a fib. Pt states she has gained around 18 pounds in 3 weeks. Pt states she feels this way when her CHF is out of control. Pt admitted for chf and echo with cardiology consult Hospital Course Hospital Course: Laboratory Tests 12/01/20 12/01/20 12/01/20 14:20 14:20 14:20 WBC 9.2 RBC 4.34 Hgb 13.6 Hct 40.2 MCV 92.6 MCH 31.4 H MCHC 33.9 RDW 14.3 Plt Count 186 MPV 7.8 Neut % (Auto) 78.6 Lymph % (Auto) 12.5 [place] % (Auto) 3.6 Eos % (Auto) 3.9 Baso % (Auto) 1.3 Neut # (Auto) 7.2 Lymph # (Auto) 1.2 [place] # (Auto) 0.3 Eos # (Auto) 0.4 Baso # (Auto) 0.1 Sodium 137 Potassium 4.8 Chloride 96 L Carbon Dioxide 34 H Anion Gap 11.8 BUN 40 H Creatinine 1.30 H Estimated Creat Clear 31 Estimated GFR 41 L Est GFR ( Amer) 50 L Glucose 347 H POC Glucose Calcium 9.6 Total Bilirubin 0.9 AST 29 ALT 19 Alkaline Phosphatase 156 H Troponin I < 0.01 NT-Pro-B Natriuret Pep 779 H Total Protein 8.4 H D Albumin 4.4 Globulin 4.0 H Albumin/Globulin Ratio 1.1 Urine Color Yellow Urine Appearance Clear Urine pH 7.5 Ur Specific [place] 1.010 Urine Protein 1+ Urine Glucose (UA) 2+ Urine Ketones Negative Urine Blood 1+ Urine Nitrate Negative Urine Bilirubin Negative Urine Urobilinogen 0.2 Ur Leukocyte Esterase Negative Urine RBC Occasional Urine WBC None Ur Squamous Epith Cells Occasional Urine Bacteria None Chlamy pneumoniae PCR Adenovirus (PCR) B. pertussis DNA (PCR) Coronavirus OC43 (PCR) Coronavirus HKU1 (PCR) Coronavirus 229E (PCR) SARS-CoV-2 (PCR) Coronavirus NL63 (PCR) Human Metapneumovir PCR Influenza A (H1) PCR Influ A (H1N1/09) PCR Influenza A (H3) PCR Influenza Type A (PCR) Influenza Type B (PCR) M. pneumoniae (PCR) Parainfluenza 1 (PCR) Parainfluenza 2 (PCR) Parainfluenza 3 (PCR) Parainfluenza 4 (PCR) RSV (PCR) Entero/Rhino (PCR) SARS-CoV-2 IgG Ab (Rapid) SARS-CoV-2 IgM Ab (Rapid) 12/01/20 12/02/20 12/02/20 14:20 06:21 06:46 WBC 8.1 RBC 4.35 Hgb 13.5 Hct 41.3 MCV 94.8 MCH 31.0 MCHC 32.7 RDW 14.1 Plt Count 185 MPV 8.4 Neut % (Auto) 74.3 Lymph % (Auto) 18.2 [place] % (Auto) 3.8 Eos % (Auto) 2.9 Baso % (Auto) 0.8 Neut # (Auto) 6.0 Lymph # (Auto) 1.5 [place] # (Auto) 0.3 Eos # (Auto) 0.2 Baso # (Auto) 0.1 Sodium Potassium Chloride Carbon Dioxide Anion Gap BUN Creatinine Estimated Creat Clear Estimated GFR Est GFR ( Amer) Glucose POC Glucose 306 H* Calcium Total Bilirubin AST ALT Alkaline Phosphatase Troponin I NT-Pro-B Natriuret Pep Total Protein Albumin Globulin Albumin/Globulin Ratio Urine Color Urine Appearance Urine pH Ur Specific [place] Urine Protein Urine Glucose (UA) Urine Ketones Urine Blood Urine Nitrate Urine Bilirubin Urine Urobilinogen Ur Leukocyte Esterase Urine RBC Urine WBC Ur Squamous Epith Cells Urine Bacteria Chlamy pneumoniae PCR Adenovirus (PCR) B. pertussis DNA (PCR) Coronavirus OC43 (PCR) Coronavirus HKU1 (P
[2020-12-03 16:00] VITALS: BP 168/83; PULSE 78; RESP 20; TEMP 36.5; O2SAT 97
[2020-12-03 17:16] LABS: POC Glucose,Bedside 434 (70-110)
--- NOTE | 2020-12-03 17:24 | CA_ITS ---
APPROVED REPORT EXAM: Comprehensive 2D, Doppler, and color-flow Echocardiogram Loft Worker Apprentice: Candie Lee CRT Ht: 5 ft 4 in Wt: 224lbs BSA: 2.05 BP: 160/80 mmHg Indications: Hypertension I10, Atrial Fibrillation, COPD, HLD,CHF, O2 AT NIGHT, M-Mode Dimensions RVDd 2.66 cm (0.9-2.6) LA Diam 4.13 cm (1.9-4.0) LVDd 4.58 cm (3.5-5.7) Ao Diam 3.34 cm (2.0-3.7) LVDs 3.40 cm (3.5-5.7) IVSd 1.59 cm (0.6-1.1) PWd 0.79 cm (0.6-1.1) EF (Teich) 50.80% FS 25.80% EDV (Teich) 96.30 mL ESV (Teich) 47.40 mL Left Ventricle Left atrium is mildly enlarged, left ventricle is normal size, mild concentric left ventricular hypertrophy, visually estimated ejection fraction 55% with no regional wall motion abnormality, diastolic parameters are not obtained in this study. Right Ventricle Right atrium and right ventricle are normal size and contractility. Aortic Valve Aortic valve is minimally thickened and fibrosed, there is no aortic stenosis or aortic insufficiency. Mitral Valve Mitral valve is grossly normal, there is mild mitral regurgitation, mitral inflow velocity was not recorded. Tricuspid Valve Tricuspid valve grossly normal, tricuspid Dopplers were not performed. Pulmonic Valve Pulmonic valve is poorly visualized. Great Vessels Aortic root is normal size. Pericardium No significant pericardial effusion noted. Conclusion 1. Limited study was performed, mitral inflow and tricuspid Dopplers were not performed. 2. Mildly enlarged left atrium, normal left ventricular size, mild concentric left ventricular hypertrophy, visually estimated ejection fraction 55% with no regional wall motion abnormality, diastolic parameters are inconclusive. 3. No significant pericardial effusion noted. Electronically signed by : Jhonny Astudillo, 12/03/2020 19:46:25
--- NOTE | 2020-12-03 17:45 | PC.NURSE ---
DISCHARGE INSTRUCTIONS GONE OVER AT THIS TIME. QUESTIONS ENCOURAGED AND ANSWERED. PT VU
--- NOTE | 2020-12-03 17:55 | PC.NURSE ---
PT ASSISTED OFF UNIT IN WHEELCHAIR INTO FAMILY VEHICLE AT THIS TIME VIA X[facility] STAFF
== END 2020-12-03 17:55 | disposition home or self-care (01) ==
LOC: ER 16:58 → 2ND 17:02
PROVIDERS: Nurse Practitioner Family; Admitting Provider Family Medicine; Emergency Provider Emergency Medicine; PCP Internal Medicine Cardiovascular Disease; Visit Provider Family Medicine
DX: I11.0 Hypertensive heart disease with heart failure (principal); I50.31 Acute diastolic (congestive) heart failure; I48.20 Chronic atrial fibrillation, unspecified; J44.9 Chronic obstructive pulmonary disease, unspecified; Z99.81 Dependence on supplemental oxygen; Z88.2 Allergy status to sulfonamides; Z88.8 Allergy status to other drugs, medicaments and biological substances; Z79.4 Long term (current) use of insulin; E11.9 Type 2 diabetes mellitus without complications; Z79.899 Other long term (current) drug therapy
CPT/HCPCS: 71046; 71275; 80048; 80053; 81001; 82962; 83880; 84484; 85025; 86328; 87581; 87633; 87798; 93005; 93308; 96374; 97116; 97161; 97165; 97530; 99285; G0378; Q9967

== ENCOUNTER → 2020-12-24 15:36 | Outpatient (CLI) | payer MEDICARE, SELFPAY ==
[2020-12-24 18:02] LABS: Chloride 96 mmol/L (98-107); Sodium 137 mmol/L (136-145)
[2020-12-24 18:03] LABS: Potassium 4.7 mmoL/L (3.5-5.1)
[2020-12-24 18:05] LABS: Blood Urea Nitrogen 34 mg/dl (7-17); Estimated Glomerular Filt Rate 41 ml/min (>60); GFR (African American) 50 ML/MIN (>60)
[2020-12-24 18:06] LABS: Anion Gap 10.7 mEq/L (5-15); Calcium 9.2 mg/dl (8.4-10.2); Carbon Dioxide 35 mmol/L (22.0-30.0); Glucose 386 mg/dl (74-100)
[2020-12-24 18:17] LABS: NT Pro Brain Natriuretic Pep. 846 pg/mL (0-125)
== END ==
PROVIDERS: Visit Provider Internal Medicine
DX: I50.9 Heart failure, unspecified (principal); Z79.899 Other long term (current) drug therapy
CPT/HCPCS: 36415; 80048; 83880

== ENCOUNTER 2021-09-15 13:23 | Observation (INO) | payer MEDICARE, SELFPAY ==
[2021-09-15] VITALS (12 sets, daily range): BP systolic 116–204; BP diastolic 78–106; PULSE 30–77; RESP 13–30; TEMP 36.6–37; O2SAT 93–100; BMI 40.2; BMI 38.9; BMI 35.9
--- NOTE | 2021-09-15 13:35 | XR_ITS ---
PROCEDURE INFORMATION: Exam: XR Chest Exam date and time: 09/15/2021 1:35 PM Age: 66 years old Clinical indication: Patient HX: Patient connected to defibrillator. Cough? TECHNIQUE: Imaging protocol: XR of the chest. AP upright portable exam 1:48 p.m. Views: 1 view. COMPARISON: CR XR CHEST 2V 12/02/2020 12:53 PM FINDINGS: Tubes, catheters and devices: Overlying cardiac defibrillator, and staff attorney electrodes and wires. Overlying oxygen tubing. Lungs: No acute pulmonary findings. No pulmonary consolidation. Chronic mild infrahilar interstitial prominence compared with the prior study. Lung volumes within normal limits. Pleural spaces: Haziness at the left costophrenic angle, there may be a small amount of layering left pleural fluid. The patient's right pleural effusion has cleared in the interval. No pneumothorax. Heart/Mediastinum: Cardiac silhouette is enlarged. Chronic haziness at the left cardiophrenic angle unchanged compared with the prior study, likely due to prominent pericardial fat pad. Vasculature: Mild calcific plaque in the aortic arch. Bones/joints: Osteopenia. Chronic spinal degenerative changes. IMPRESSION: 1. No acute findings, compared with 12/02/2020. 2. Chronic cardiomegaly and infrahilar interstitial prominence. 3. Chronic hazy densities in the lower left chest, probably a combination of a prominent pericardial fat pad, and possible small amount of layering left pleural fluid. 4. Additional nonemergency and chronic findings as above.
[2021-09-15 13:54] LABS: Basophils # 0.2 K/mm3 (0-0.2); Basophils % 2.5 % (0.1-2.0); Eosinophils # 0.5 K/mm3 (0.0-0.4); Hematocrit 36.2 % (37.0-47.0); Hemoglobin 12.1 g/dL (12.2-16.2); Lymphocytes # 2.9 K/mm3 (0.7-4.5); Lymphocytes % 32.1 % (10-50); Mean Corpuscular HGB Conc 33.5 g/dL (31.8-35.4); Mean Corpuscular Hemoglobin 32.3 pg (27.0-31.2); Mean Corpuscular Volume 96.5 fl (81-99); Mean Platelet Volume 8.8 fl (7.4-10.4); Monocytes # 0.3 K/mm3 (0.1-1.0); Monocytes % 2.9 % (1.7-9.3); Neutrophils # 5.2 K/mm3 (1.8-7.8); Neutrophils % 57.5 % (37.0-80.0); Platelet Count 206 K/mm3 (142-424); Red Blood Count 3.75 M/mm3 (4.20-5.40); Red Cell Distribution Width 14.1 % (11.5-17.5)
[2021-09-15 14:04] LABS: Potassium 5.8 mmoL/L (3.5-5.1); Sodium 135 mmol/L (136-145)
[2021-09-15 14:07] LABS: Alanine Aminotransferase 19 U/L (12-78); Albumin Level 3.6 g/dl (3.5-5.0); Albumin/Globulin Ratio 1.2 (1.1-1.8); Alkaline Phosphatase 145 U/L (38-126); Aspartate Amino Transferase 24 U/L (14-36); Bilirubin,Total 0.2 mg/dl (0.2-1.3); Blood Urea Nitrogen 29 mg/dl (7-17); Calcium 8.8 mg/dl (8.4-10.2); Carbon Dioxide 33 mmol/L (22.0-30.0); Estimated Glomerular Filt Rate 50 ml/min (>60); GFR (African American) 60 ML/MIN (>60); Globulin 2.9 g/dL (1.3-3.2); Glucose 386 mg/dl (74-100); Lipase 63 U/L (23-300); Total Protein,Serum 6.5 g/dl (6.3-8.2)
--- NOTE | 2021-09-15 14:08 | PC.NURSE ---
lab staff states approx 15 minutes left until results on pt, notified ER MD will continue to monitor
[2021-09-15 14:10] LABS: Creatinine Clearance Estimated 78 mL/min (50-200)
[2021-09-15 14:17] LABS: NT Pro Brain Natriuretic Pep. 776 pg/mL (0-125)
--- NOTE | 2021-09-15 14:20 | ECG_ITS ---
APPROVED REPORT Exam: Resting ECG HR:74 bpm ECG Measurements Heart Rate 74 AXES ID 270 P 82 QRSd 86 QRS 72 QT 384 T 78 QTc 426 Conclusion Sinus rhythm with 1st degree AV block Otherwise normal ECG Electronically signed by : Sohan Gibson MD 09/16/2021 20:18:17
[2021-09-15 14:22] LABS: Troponin I < 0.01 ng/ml (0.00-0.034)
--- NOTE | 2021-09-15 14:32 | HMH.EDGENADL ---
ED Disposition Clinical Impression: Bradycardia, Hyperkalemia Disposition: Admitted As Inpatient Condition on Discharge: Fair - Critical Care Critical Care Time: Yes Attestation: On 09/15/21, the high probability of a clinically significant, sudden or life threatening deterioration of the following system(s) required my full and direct attention, intervention and personal management. The time I documented below is in addition to time spent performing reported procedures but includes the following listed in this critical care notation. Total Critical Care Time: 30 Vital system(s) involved:: Circulatory Failure, Metabolic Failure, Renal Failure My critical care processes included: Assessment & monitoring of V/S, Initial and Re-exams, Data Review/Interpretation, Coordinating Care, Medication Orders and management, Documentation Medical Decision Making - Medical Records Medical records reviewed: Yes: I reviewed the patient's medical records. - Moncho Inquiry Pt receiving controlled substance: No Vital Signs: 09/15/21 13:23 09/15/21 13:36 09/15/21 13:40 Temperature Pulse Rate 32 L 77 74 Pulse Rate [Left Radial] 30 L Respiratory Rate 14 30 H 18 Blood Pressure 135/103 H 204/89 H 199/78 H Blood Pressure [Right Arm] 130/103 H Blood Pressure Mean Blood Pressure Mean [Right Arm] 112 Blood Pressure Source Automatic Cuff Blood Pressure Source [Right Arm] Automatic Cuff Blood Pressure Position Sitting Blood Pressure Position [Right Arm] Sitting 02 Sat by Pulse Oximetry 97 100 100 Oxygen Delivery Method Room Air Room Air Room Air 09/15/21 13:49 09/15/21 14:01 09/15/21 15:01 Temperature Pulse Rate 77 77 69 Pulse Rate [Left Radial] Respiratory Rate 19 17 13 Blood Pressure 201/78 H 187/86 H 200/82 H Blood Pressure [Right Arm] Blood Pressure Mean 121 Blood Pressure Mean [Right Arm] Blood Pressure Source Automatic Cuff Blood Pressure Source [Right Arm] Blood Pressure Position Sitting Blood Pressure Position [Right Arm] 02 Sat by Pulse Oximetry 100 100 100 Oxygen Delivery Method Room Air Room Air 09/15/21 15:31 09/15/21 16:00 09/15/21 17:20 Temperature Pulse Rate 70 70 Pulse Rate [Left Radial] Respiratory Rate 15 20 Blood Pressure 179/106 H 169/81 H Blood Pressure [Right Arm] Blood Pressure Mean 130 110 Blood Pressure Mean [Right Arm] Blood Pressure Source Blood Pressure Source [Right Arm] Blood Pressure Position Blood Pressure Position [Right Arm] 02 Sat by Pulse Oximetry 99 96 100 Oxygen Delivery Method Room Air 09/15/21 17:31 Temperature 98.6 F Pulse Rate 77 Pulse Rate [Left Radial] Respiratory Rate 15 Blood Pressure 187/86 H Blood Pressure [Right Arm] Blood Pressure Mean Blood Pressure Mean [Right Arm] Blood Pressure Source Blood Pressure Source [Right Arm] Blood Pressure Position Blood Pressure Position [Right Arm] 02 Sat by Pulse Oximetry Oxygen Delivery Method - Lab Data Lab Results 09/15/21 13:30: WBC 9.0, RBC 3.75 L, Hgb 12.1 L, Hct 36.2 L, MCV 96.5, MCH 32.3 H, MCHC 33.5, RDW 14.1, Plt Count 206, MPV 8.8, Neut % (Auto) 57.5, Lymph % (Auto) 32.1, [place] % (Auto) 2.9, Eos % (Auto) 5.0, Baso % (Auto) 2.5 H, Neut # (Auto) 5.2, Lymph # (Auto) 2.9, [place] # (Auto) 0.3, Eos # (Auto) 0.5 H, Baso # (Auto) 0.2 09/15/21 13:30: Sodium 135 L, Potassium 5.8 H, Chloride 98, Carbon Dioxide 33 H, Anion Gap 9.8, BUN 29 H, Creatinine 1.10 H, Estimated Creat Clear 78, Estimated GFR 50 L, Est GFR ( Amer) 60, Glucose 386 H, Calcium 8.8, Total Bilirubin 0.2, AST 24, ALT 19, Alkaline Phosphatase 145 H, Troponin I < 0.01, Total Protein 6.5, Albumin 3.6, Globulin 2.9, Albumin/Globulin Ratio 1.2, Lipase 63, TSH 1.73, Acetone Level Detected 09/15/21 13:30: PT 10.2, INR 0.90, APTT 21.2 L 09/15/21 13:30: NT-Pro-B Natriuret Pep 776 H 09/15/21 14:01: VBG pH 7.28 L, VBG pCO2 59.0 H, VBG pO2 47.3 H, VBG HCO3 27.3, VBG Total CO2 29.1 H, VBG
[2021-09-15 14:33] LABS: Activated Partial Thrombo Time 21.2 seconds (22.8-30.6); Prothrombin Time 10.2 seconds (10.1-12.5)
[2021-09-15 14:38] LABS: Thyroid Stimulating Hormone 1.73 uIU/mL (0.465-4.68)
--- NOTE | 2021-09-15 14:43 | PC.NURSE ---
service dr oliver.
[2021-09-15 14:44] LABS: VBG Base Excess 0.6 mmol/L (-2.4-2.3); VBG HCO3 27.3 mmol/L (23-30); VBG Oxygen Saturation 79.5 % (50-70); VBG PH 7.28 mmol/L (7.31-7.41); VBG PO2 47.3 mmol/L (28-40); VBG Total CO2 29.1 mmol/L (23-27)
--- NOTE | 2021-09-15 14:46 | PC.NURSE ---
vbg results given to JOSIAH CERVANTES
[2021-09-15 15:01] LABS: Anion Gap 9.8 mEq/L (5-15); Chloride 98 mmol/L (98-107)
[2021-09-15 15:32] LABS: Coronavirus 19, PCR Not Detected (NotDetected); Influenza A, PCR Not Detected (NotDetected); Influenza B, PCR Not Detected (NotDetected)
--- NOTE | 2021-09-15 15:38 | PC.NURSE ---
service dr oliver.
--- NOTE | 2021-09-15 15:41 | CT_ITS ---
PROCEDURE INFORMATION: Exam: CT Head Without Contrast Exam date and time: 09/15/2021 3:41 PM Age: 66 years old Clinical indication: Altered mental status/memory loss; Confusion or disorientation TECHNIQUE: Imaging protocol: Computed tomography of the head without contrast. Radiation optimization: All CT scans at this facility use at least one of these dose optimization techniques: automated exposure control; mA and/or kV adjustment per patient size (includes targeted exams where dose is matched to clinical indication); or iterative reconstruction. COMPARISON: No relevant prior studies or reports available. FINDINGS: Brain: There is a chronic appearing left occipital cortical infarct with encephalomalacia, series 3, images 21 -28. There is associated volume loss with slight dilatation of the occipital horn of the left lateral ventricle. No acute intracranial findings. No intracranial hemorrhage. No edema, swelling or mass-effect. There is mild generalized cerebral atrophy. There are patchy areas of diminished white matter attenuation in both cerebral hemispheres, nonspecific but most likely chronic microvascular ischemic change. There is minimal right basal ganglia calcification. Cerebral ventricles: No significant hydrocephalus. Mild dilatation of the trigone and occipital horn of the left lateral ventricle, likely ex vacuo change due to adjacent occipital encephalomalacia. Paranasal sinuses: No acute findings in the visualized sinuses. No significant sinus opacification or air-fluid levels. Minimal ethmoid mucosal thickening. Mastoid air cells: Visualized mastoid air cells are well aerated. Orbital cavity: No acute findings in the orbits. Correlate for history of bilateral lens replacement surgeries. Vasculature: Atherosclerotic calcified plaques in the internal carotid artery siphons and left vertebral artery. Bones/joints: No acute skull fracture. No lytic lesions. Mild nasal bone deformities, likely chronic. No prior studies available to compare. Soft tissues: There are no soft tissue masses or fluid collections. IMPRESSION: 1. No acute findings. 2. 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 Likely chronic microvascular ischemic changes in both cerebral hemispheres. 3. There is no CT evidence of intracranial mass, intracranial hemorrhage, or acute infarct. 4. Additional senescent changes, and non emergency findings as above.
[2021-09-15 15:56] LABS: Acetone, Serum (Rapid) Detected (None Detect)
--- NOTE | 2021-09-15 16:14 | PC.NURSE ---
Pt returned from rad
--- NOTE | 2021-09-15 17:11 | PC.NURSE ---
Report given to Marjorie FLANNERY
--- NOTE | 2021-09-15 18:40 | PC.NURSE ---
admitted pt to [facility] services. She is alert and oriented. Denies any cp or soa at rest. lungs are cta. no edema. skin intact. is at bedside.
[2021-09-15 18:42] LABS: Lactic Acid 1.4 mmol/L (0.7-2.1)
[2021-09-15 19:07] LABS: Troponin I < 0.01 ng/ml (0.00-0.034)
[2021-09-15 21:15] LABS: POC Glucose,Bedside 257 (70-110)
[2021-09-15 21:59] LABS: Troponin I < 0.01 ng/ml (0.00-0.034)
[2021-09-16] VITALS (8 sets, daily range): BP systolic 114–163; BP diastolic 52–84; PULSE 60–97; RESP 16–20; TEMP 36.6–37.3; O2SAT 90–99; BMI 36.1; BMI 36.3
--- NOTE | 2021-09-16 05:01 | PC.NURSE ---
pt is a&ox4. has rested majority of this shift. remains on room air with O2 noted in the low 90s. NSR on tele. no c/o pain or discomfort voiced. resting in bed at this time. call light within reach.
--- NOTE | 2021-09-16 05:56 | PC.NURSE ---
pt has rested well this shift. pt reports she uses 3LNC at night at home. O2 noted at 87% 3LNC applied. NSR on tele. no c/o pain or discomfort voiced. resting in bed at this time. call light within reach.
[2021-09-16 06:30] LABS: POC Glucose,Bedside 236 (70-110)
--- NOTE | 2021-09-16 07:03 | ECG_ITS ---
APPROVED REPORT Exam: Resting ECG HR:76 bpm ECG Measurements Heart Rate 76 AXES WA 196 P 80 QRSd 76 QRS 82 QT 390 T 83 QTc 438 Conclusion Sinus rhythm with premature supraventricular complexes Otherwise normal ECG Electronically signed by : Sohan Gibson MD 09/16/2021 20:15:03
[2021-09-16 07:04] LABS: Basophils % 0.4 % (0.1-2.0); Eosinophils # 0.3 K/mm3 (0.0-0.4); Eosinophils % 3.1 % (0.1-12.0); Hemoglobin 11.5 g/dL (12.2-16.2); Lymphocytes # 1.4 K/mm3 (0.7-4.5); Lymphocytes % 16.5 % (10-50); Mean Corpuscular HGB Conc 34.8 g/dL (31.8-35.4); Mean Corpuscular Hemoglobin 32.8 pg (27.0-31.2); Mean Corpuscular Volume 94.4 fl (81-99); Mean Platelet Volume 8.8 fl (7.4-10.4); Monocytes # 0.3 K/mm3 (0.1-1.0); Neutrophils # 6.5 K/mm3 (1.8-7.8); Neutrophils % 76.9 % (37.0-80.0); Platelet Count 183 K/mm3 (142-424); Red Cell Distribution Width 14.2 % (11.5-17.5); White Blood Count 8.5 K/mm3 (4.8-10.8)
--- NOTE | 2021-09-16 07:17 | CA_ITS ---
APPROVED REPORT EXAM: Comprehensive 2D, Doppler, and color-flow Echocardiogram Network Security Architect: MIKE Gibson, RVS Ht: 5 ft 5 in Wt: 214lbs BSA: 2.04 HR: 72 bpm BP: 130/103 mmHg Indications: Syncope-Bradycardia 20-30bpm, CHF, Afib,COPD, HTN, DM, Ex-smoker 2D Dimensions Aortic Root 2.69 cm LA Volume 54.80 mL Left Atrium 3.72 cm LA Volume Index 26.90 mL/m2 (M/F) 16-34 LVOT 1.95 cm (M/F) 1.5-2.5 M-Mode Dimensions RVDd 2.70 cm (0.9-2.6) LA Diam 3.93 cm (1.9-4.0) LVDd 5.00 cm (3.5-5.7) Ao Diam 2.86 cm (2.0-3.7) LVDs 3.28 cm (3.5-5.7) IVSd 0.89 cm (0.6-1.1) PWd 1.21 cm (0.6-1.1) EF (Teich) 63.90% EPSs 0.89 cm FS 34.90% EDV (Teich) 120.50 mL TAPSE 2.30 (<1.7) ESV (Teich) 43.50 mL LV Diastology E Decel Time 160.00 (160-240 msec) E/A Ratio 4.71 MED E' 11.60 (< 7 cm/sec) MED A' 4.90 cm/s E'/MED E' Ratio 12.79 (>14) LAT E' 11.40 (<10 cm/sec) LAT A' 5.20 cm/s E/LAT E' Ratio 13.02 (>14) Pulm Vein s 19.00 cm/sec Aortic Valve LVOT Max 107.00 (70-110 cm/s) LVOT VTI 25.01 cm AoV Peak Wolfgang. 172.00 (50-130 cm/s) AO Peak GR. 11.90 mmHg AO Mean GR. 5.90 (<5 mmHg) AO VTI 38.45 (18-25 cm) STEPHANIE (VTI) 1.94 (2.5-4.5 cm2) Mitral Valve MV E Max Wolfgang. 148.00 (40-130 cm/s) MV A Velocity 32.00 (40-130 cm/s) E/A Ratio 4.71 MV Decel. Time 160.00 (160-240 ms) MV PHT 47.00 ms Pulmonary Valve PV Peak Velocity 95.00 (50-150 cm/s) Tricuspid Valve TR P. Velocity 351.00 cm/s RAP Estimate 10.00 mmHg RVSP 59.20 mmHg Left Ventricle Left atrium is mildly enlarged, left ventricle is normal size, mild concentric left ventricular hypertrophy, visually estimated ejection fraction 55% with no regional wall motion abnormality, diastolic parameters are inconclusive. Right Ventricle Right atrium and right ventricle mildly enlarged with normal contractility. Aortic Valve Aortic valve is thickened and calcified without Doppler evidence of aortic stenosis or aortic insufficiency. Mitral Valve Mitral valve leaflets are minimally thickened, there is mild mitral regurgitation. Tricuspid Valve Tricuspid valve is grossly normal, there is mild tricuspid regurgitation, calculated right ventricular systolic pressure 59 mmHg. Pulmonic Valve Pulmonic valve is poorly visualized. Great Vessels Aortic root is normal size. Inferior vena cava is normal size with normal inspiratory collapse. Pericardium No significant pericardial effusion noted. Conclusion 1. Mild biatrial normal, normal left ventricular size, mild concentric left ventricular hypertrophy, visually estimated ejection fraction 55% with no obvious regional wall motion abnormality, diastolic parameters are inconclusive. 2. Mildly enlarged right ventricle with normal contractility. 3. Mild mitral and tricuspid regurgitation, calculated right ventricular systolic pressure 59 mmHg. 4. No significant pericardial effusion noted. 5. Inferior vena cava is normal size with normal inspiratory collapse. Electronically signed by : Jhonny Astudillo MD 09/16/2021 19:52:31
--- NOTE | 2021-09-16 07:20 | HMH.CNCARD ---
History of Present Illness Consult date: 09/16/21 Requesting physician: Del Brooks Chief complaint: Syncope, marked bradycardia Additional Medical History:: 1. Diabetes mellitus, diagnosed approximately 2000 2. Hypertension, treated since age 26 A. History of congestive heart failure B. Echocardiogram, 10/2020, 1. Mild biatrial enlargement, normal left ventricular size, mild concentric left ventricular hypertrophy, visually estimated ejection fraction 50% with no regional wall motion abnormality, diastolic parameters are inconclusive. 2. Qualitatively mildly enlarged right ventricle with normal contractility. 3. Mild mitral and tricuspid regurgitation. 4. No significant pericardial effusion noted. Electronically signed by : Jhonny Astudillo, 10/03/2020 05:38:24 3. History of tobacco use, smoked up to 3 packs/day for 40 years, discontinued this year, 2020 4. 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 Recently lost her daughter to heart disease, June 2021 6. History of A. fib A. prior anticoagulation with NOAC History of present illness: 66-year-old female presented to the emergency department with some altered mental status. Patient has a history of A. fib as well as seizures. Apparently she was feeling completely fine. They started going to the store and the patient started becoming unconscious. The thought that she was having a seizure so brought her to the emergency department. Patient arrived in the emergency department she was obtunded and not responding. We did place the patient on cardiac monitoring immediately and she was found to be severely bradycardic with heart rates in the 20s and 30s. Patient is unable to provide any other history. This is a 66-year-old female presented to the emergency department with severe bradycardia and appears to be symptomatic from that. The patient is arousable, however significantly drowsy not answering questions appropriately. We did administer 2 rounds of atropine without any success. We did have to place the patient on external pacing. Given her history of diabetes and chronic beta-jeffrey use, there is concern for possible beta-jeffrey toxicity or hyperkalemia. Patient was treated for hyperkalemia with a cocktail of 2 g of calcium, insulin, bicarb and we also added glucagon secondary for possible beta-jeffrey overdose. Patient was kept on external pacing. Cardiology notified. The above per JOSIAH Escalante MD Patient states she had been feeling well up until yesterday morning when in route to the store she began feeling headache and some abdominal discomfort and just not feeling right. She does not remember the events leading up to the ER and admission. She does relate having some episodes of blood sugar uncontrolled earlier this year for which she states she was admitted for coma and treated. She still is grieving the loss of her daughter in June of this year due to heart disease. EKG and telemetry in the ER showed marked bradycardia with initial presenting HR in the 20-30's which improved quickly after treatment noted above. EKG this AM is sinus with ID interval of 196 and rate of 76 bpm. [facility] History Medical History: Reports:: Arrhythmia, Atrial Fibrillation, Congestive Heart Failure, Cerebrovascular Accident, Diabetes Mellitus Type 2, Hypertension, MRSA Denies:: Cancer, Diabetes Mellitus Type 1 *Have you ever received a pneumonia vaccine?: Yes *Have you received a flu vaccine this season?: Yes Other Medical History: Reports: Cataracts Other Surgeries: Yes: Appendectomy, Cholecystectomy, Hysterectomy-Partial, Tubal Ligation Amputation: No - *Social History Smoking Status: Former smoker # Packs/Day (cigarettes): 1 Alcohol Intake: never *Occupational Status:: retired, disabled Housing: house Household Members: spouse *Travel in the last 8 weeks: None Family Hx:: Cancer, Diabetes, Heart Attack Meds Home Medicat
--- NOTE | 2021-09-16 07:30 | HMH.PHAVTE ---
[facility] Pharmacy VTE Monitoring - Patient Demographics Admission date: 09/15/21 Report Date: 09/16/21 Time: 07:30 Allergies/Adverse Reactions: Patient Allergies sulfamethoxazole [From Sulfamethoxazole-Trimethoprim] Allergy (Verified 12/24/20 14:36) Hives trimethoprim [From Sulfamethoxazole-Trimethoprim] Allergy (Verified 12/24/20 14:36) Hives Height: 1.66 m Weight: 99.609 kg Patient Problems: Current Active Problems Bradycardia (Acute) - VTE Risk Labs: VTE Related Lab Results Hgb 11.5 g/dL (12.2-16.2) L 09/16/21 06:16 Hct 33.0 % (37.0-47.0) L 09/16/21 06:16 Plt Count 183 K/mm3 (142-424) 09/16/21 06:16 PT 10.2 seconds (10.1-12.5) 09/15/21 13:30 INR 0.90 (0.9-1.1) 09/15/21 13:30 APTT 21.2 seconds (22.8-30.6) L 09/15/21 13:30 BUN 29 mg/dl (7-17) H 09/15/21 13:30 Creatinine 1.10 mg/dl (0.52-1.04) H 09/15/21 13:30 Estimated Creat Clear 78 mL/min (50-200) 09/15/21 13:30 Clinical Trial Participant: No - Prophylaxis VTE Prophylaxis Ordered?: Yes Types of VTE Prophylaxis: TEDS Knee High
[2021-09-16 07:33] LABS: Alanine Aminotransferase 19 U/L (12-78); Albumin Level 3.5 g/dl (3.5-5.0); Albumin/Globulin Ratio 1.2 (1.1-1.8); Alkaline Phosphatase 142 U/L (38-126); Anion Gap 10.3 mEq/L (5-15); Aspartate Amino Transferase 27 U/L (14-36); Bilirubin,Total 0.5 mg/dl (0.2-1.3); Blood Urea Nitrogen 33 mg/dl (7-17); Calcium 9.9 mg/dl (8.4-10.2); Carbon Dioxide 30 mmol/L (22.0-30.0); Chloride 102 mmol/L (98-107); Creatinine Clearance Estimated 78 mL/min (50-200); Estimated Glomerular Filt Rate 50 ml/min (>60); GFR (African American) 60 ML/MIN (>60); Globulin 2.9 g/dL (1.3-3.2); Glucose 215 mg/dl (74-100); Potassium 5.3 mmoL/L (3.5-5.1); Sodium 137 mmol/L (136-145); Total Protein,Serum 6.4 g/dl (6.3-8.2)
--- NOTE | 2021-09-16 09:16 | HMH.HP ---
*Admission Date: 09/15/21 <Liza Steve - 09/16/21 09:26> *Chief complaint: Symptomatic Bradycardia <Liza Steve - 09/16/21 09:26> *History of present illness: 66-year-old female presented to the emergency department with some altered mental status. Patient has a history of A. fib as well as seizures. Apparently she was feeling completely fine. They started going to the store and the patient started becoming unconscious. The thought that she was having a seizure so brought her to the emergency department. Patient arrived in the emergency department she was obtunded and not responding. We did place the patient on cardiac monitoring immediately and she was found to be severely bradycardic with heart rates in the 20s and 30s. Patient is unable to provide any other history. This is a 66-year-old female presented to the emergency department with severe bradycardia and appears to be symptomatic from that. The patient is arousable, however significantly drowsy not answering questions appropriately. We did administer 2 rounds of atropine without any success. We did have to place the patient on external pacing. Given her history of diabetes and chronic beta-jeffrey use, there is concern for possible beta-jeffrey toxicity or hyperkalemia. Patient was treated for hyperkalemia with a cocktail of 2 g of calcium, insulin, bicarb and we also added glucagon secondary for possible beta-jeffrey overdose. Patient was kept on external pacing. Cardiology notified. The above per JOSIAH Escalante MD Patient states she had been feeling well up until yesterday morning when in route to the store she began feeling headache and some abdominal discomfort and just not feeling right. She does not remember the events leading up to the ER and admission. She does relate having some episodes of blood sugar uncontrolled earlier this year for which she states she was admitted for coma and treated. She still is grieving the loss of her daughter in June of this year due to heart disease. EKG and telemetry in the ER showed marked bradycardia with initial presenting HR in the 20-30's which improved quickly after treatment noted above. EKG this AM is sinus with VA interval of 196 and rate of 76 bpm. The above per igor aBker PA This morning she is alert and oriented x 4 and resting comfortably in bed. She denies any pain other than slight headache. She has mild shortness of breath with O2 per nasal cannula which she reports is her baseline. She has not been up to the bathroom and notes she uses a wheelchair and walker for ambulation at home. She has been seen by cardiology. <Power09/16/21 09:26> [facility] History Medical History: Reports:: Arrhythmia, Atrial Fibrillation, Congestive Heart Failure, Cerebrovascular Accident, Diabetes Mellitus Type 2, Hypertension, MRSA Denies:: Cancer, Diabetes Mellitus Type 1 <Power09/16/21 09:26> *Have you ever received a pneumonia vaccine?: Yes <09/16/21 09:26> *Have you received a flu vaccine this season?: Yes <Power09/16/21 09:26> Other Medical History: Reports: Cataracts <Power09/16/21 09:26> Other Surgeries: Yes: Appendectomy, Cholecystectomy, Hysterectomy-Partial, Tubal Ligation <Power09/16/21 09:26> Amputation: No <Power09/16/21 09:26> - *Social History Smoking Status: Former smoker <Power09/16/21 09:26> Tobacco Type: cigarettes <Power09/16/21 09:26> # Packs/Day (cigarettes): 1 <Power09/16/21 09:26> Alcohol Intake: never <Power09/16/21 09:26> *Occupational Status:: retired, disabled <Power09/16/21 09:26> Housing: house <Power09/16/21 09:26> Household Members: spouse <Power09/16/21 09:26> *Travel in the last 8 weeks: None <Power09/16/21 09:26> Family Hx:: Cancer, Diabetes, Heart Attack <Power09/16/21 09:26> Review of Systems - Constitutional Denies body ache(s),
--- NOTE | 2021-09-16 10:36 | HMH.PHAINT ---
VERIFIED HOME MEDICAITON LIST USING LIST FROM OUTPATIENT PHARMACY, LIST FROM DR RAMSEY OFFICE AND PT INTERVIEW.
[2021-09-16 12:38] LABS: POC Glucose,Bedside 294 (70-110)
[2021-09-16 17:56] LABS: POC Glucose,Bedside 264 (70-110)
[2021-09-16 22:21] LABS: POC Glucose,Bedside 241 (70-110)
[2021-09-17] VITALS: BP 135/69; PULSE 66; PULSE 70; RESP 16; TEMP 36.7; O2SAT 90
[2021-09-17 04:00] VITALS: BP 117/73; PULSE 70; PULSE 72; RESP 20; TEMP 36.6; O2SAT 98
[2021-09-17 04:23] VITALS: BMI 368451.0
[2021-09-17 05:34] LABS: POC Glucose,Bedside 175 (70-110)
--- NOTE | 2021-09-17 07:51 | HMH.PNCARD ---
Subjective Date: 09/17/21 Time: 07:51 Principal diagnosis: marked bradycardia, syncope Interval history: 66-year-old white female in bed eating breakfast in no acute distress. Denies any chest pain, pressure or tightness. Telemetry shows NSR. No significant arrhythmias or recurrent bradycardia. Exam Vital signs and Labs for Last 24 Hours: Temp Pulse Resp BP Pulse Ox 97.9 F 72 20 117/73 98 09/17/21 04:00 09/17/21 04:00 09/17/21 04:00 09/17/21 04:00 09/17/21 04:00 Laboratory Results - last 24 hr 09/16/21 12:26: POC Glucose 294 H 09/16/21 16:45: POC Glucose 264 H 09/16/21 21:36: POC Glucose 241 H 09/17/21 05:26: POC Glucose 175 H I & O for Last 24 hours: Intake & Output 09/14/21 09/15/21 09/16/21 09/17/21 11:59 11:59 11:59 11:59 Intake Total 1324 / 1324 1351 / 1351 Output Total 1250 / 1250 900 / 900 Balance 74 / 74 451 / 451 Weight 219 lb 9.6 oz 221 lb 7 oz - Constitutional no acute distress - *Routine HEENT Exam Head: Present: normocephalic Eye: Present: EOMI, PERRL ENT: Present: mucous membranes moist - *Routine Neck Exam Present: supple. Absent: lymphadenopathy - *Routine Respiratory Exam Present: CTA bilaterally - *Routine Cardiovascular Exam Present: RRR - *Routine Abdominal Exam Present: soft, normoactive bowel sounds. Absent: tenderness - *Routine Extremities Exam Absent: cyanosis, clubbing, edema - *Routine Skin Exam Present: warm. Absent: rash - *Routine Neurological Exam Present: alert, oriented X3 Progress Note: A&P (1) Syncope due to autonomic failure Status: Acute (2) Bradycardia Status: Acute (3) Hyperkalemia Status: Acute (4) Atrial fibrillation Status: Acute (5) COPD (chronic obstructive pulmonary disease) Status: Acute (6) Diabetes Status: Acute (7) HTN (hypertension) Status: Acute (8) Hyperlipidemia Status: Acute Assessment and Plan for All Diagnoses:: 1. Syncope with questionable seizure-like activity secondary to marked bradycardia with autonomic failure, likely due to combination of clonidine and metoprolol. Resolved with echo showing normal LVEF. Continue metoprolol therapy for BP and rate/rhythm control of PAF. 2. Hypertension, improved with addition of ARB to BB. 3. Diabetes mellitus, per PCP. 4. Bradycardia, resolved 5. Hyperkalemia, improved. Today's labs pending. 6. COPD with recent discontinuation of tobacco use 7. Mild anemia, stable 8. History of atrial fibrillation and CVA, currently in NSR on metoprolol therapy. Continue plavix and resume Xarelto 20 mg daily. 9. Hyperlipidemia, continue statin therapy. OK for discharge from cardiology standpoint. Follow up in one week. Home med recommendations: Atorvastatin 20 mg daily Irbesartan 75 mg daily Metoprolol 50 mg twice daily Xarelto 20 mg daily Clopidogrel 75 mg daily isosorbide 30 mg daily Spironolactone 25 mg daily Stop potassium and clonidine.
[2021-09-17 07:53] VITALS: BP 179/83; PULSE 72; RESP 20; TEMP 36.9; O2SAT 96
[2021-09-17 08:00] VITALS: PULSE 70
[2021-09-17 08:18] LABS: Anion Gap 10.6 mEq/L (5-15); Blood Urea Nitrogen 30 mg/dl (7-17); Calcium 8.6 mg/dl (8.4-10.2); Carbon Dioxide 30 mmol/L (22.0-30.0); Chloride 105 mmol/L (98-107); Creatinine Clearance Estimated 67 mL/min (50-200); Estimated Glomerular Filt Rate 41 ml/min (>60); GFR (African American) 49 ML/MIN (>60); Glucose 167 mg/dl (74-100); Potassium 4.6 mmoL/L (3.5-5.1); Sodium 141 mmol/L (136-145)
--- NOTE | 2021-09-17 08:49 | HMH.ACPN2 ---
<Liza Steve - Last Filed: 09/17/21 08:49> Internal Medicine - PN: Subj *Date: 09/17/21 *Time: 08:49 Interval history: She is sitting up in bed eating breakfast. She has no complaint and reports she rested well overnight. She is eager for discharge. Exam Vital signs and Labs for Last 24 Hours: Temp Pulse Resp BP Pulse Ox 98.4 F 72 20 179/83 H 96 09/17/21 07:53 09/17/21 07:53 09/17/21 07:53 09/17/21 07:53 09/17/21 07:53 Laboratory Results - last 24 hr 09/16/21 12:26: POC Glucose 294 H 09/16/21 16:45: POC Glucose 264 H 09/16/21 21:36: POC Glucose 241 H 09/17/21 05:26: POC Glucose 175 H 09/17/21 07:48: Sodium 141, Potassium 4.6, Chloride 105, Carbon Dioxide 30, Anion Gap 10.6, BUN 30 H, Creatinine 1.30 H, Estimated Creat Clear 67, Estimated GFR 41 L, Est GFR ( Amer) 49 L, Glucose 167 H, Calcium 8.6 I & O for Last 24 hours: Intake & Output 09/14/21 09/15/21 09/16/21 09/17/21 11:59 11:59 11:59 11:59 Intake Total 1324 / 1324 1631 / 1631 Output Total 1250 / 1250 900 / 900 Balance 74 / 74 731 / 731 Weight 219 lb 9.6 oz 221 lb 7 oz - Constitutional no acute distress - *Routine HEENT Exam Head: Present: normocephalic ENT: Present: mucous membranes moist - *Routine Respiratory Exam Absent: respiratory distress Comments: good air movement with scattered rhonchi throughout - *Routine Cardiovascular Exam Present: RRR - *Routine Abdominal Exam Present: soft, normoactive bowel sounds, obese. Absent: tenderness, distended - *Routine Extremities Exam Present: pulses intact. Absent: calf tenderness, extremity cold to touch Comments: trace BLE edema - *Routine Neurological Exam Present: alert, oriented X3, moving all extremities, normal speech Assessment and Plan (1) Syncope due to autonomic failure Status: Acute Category: Medical Code(s): R55 - Syncope and collapse (2) Bradycardia Status: Acute Category: Medical Code(s): R00.1 - Bradycardia, unspecified (3) Hyperkalemia Status: Acute Category: Medical Code(s): E87.5 - Hyperkalemia (4) Atrial fibrillation Status: Acute Qualifiers: Atrial fibrillation type: unspecified Qualified Code(s): I48.91 - Unspecified atrial fibrillation Category: Medical Code(s): I48.91 - Unspecified atrial fibrillation (5) COPD (chronic obstructive pulmonary disease) Status: Acute Qualifiers: COPD type: unspecified COPD Qualified Code(s): J44.9 - Chronic obstructive pulmonary disease, unspecified Category: Medical Code(s): J44.9 - Chronic obstructive pulmonary disease, unspecified (6) Diabetes Status: Acute Qualifiers: Diabetes mellitus type: type 2 Diabetes mellitus senior living insulin use: unspecified senior living insulin use status Diabetes mellitus complication status: with other specified complication Qualified Code(s): E11.69 - Type 2 diabetes mellitus with other specified complication Category: Medical Code(s): E11.9 - Type 2 diabetes mellitus without complications (7) HTN (hypertension) Status: Acute Qualifiers: Hypertension type: essential hypertension Category: Medical Code(s): I10 - Essential (primary) hypertension (8) Hyperlipidemia Status: Acute Qualifiers: Hyperlipidemia type: unspecified Qualified Code(s): E78.5 - Hyperlipidemia, unspecified Category: Medical Code(s): E78.5 - Hyperlipidemia, unspecified - Assessment and plan all Dx Assessment and Plan for all problems:: Discharge home with plan for followup with PCP and cardiology in 1 week. <Del Brooks - Last Filed: 09/17/21 18:25> Internal Medicine - PN: Subj *Date: 09/17/21 *Time: 18:24 Exam Vital signs and Labs for Last 24 Hours: Temp Pulse Resp BP Pulse Ox 98 F 60 17 162/79 H 98 09/17/21 11:53 09/17/21 12:00 09/17/21 11:53 09/17/21 11:53 09/17/21 11:53 Laboratory Results - last 24 hr 09/16/21 21:36: POC Glucose 241
[2021-09-17 11:53] VITALS: BP 162/79; PULSE 61; RESP 17; TEMP 36.6; O2SAT 98
[2021-09-17 12:00] VITALS: PULSE 60
--- NOTE | 2021-09-17 15:20 | PC.NURSE ---
Patient is ready for discharge to home today
--- NOTE | 2021-09-17 21:48 | HMH.DCSUM ---
General - General Admission date:: 09/15/21 <Del Brooks - 11/21/21 17:56> 09/15/21 <SinghperezAlison - 09/17/21 21:52> Discharge date: 09/17/21 <Alison Mitchell - 09/17/21 21:52> HPI HPI: 66-year-old female presented to the emergency department with some altered mental status. Patient has a history of A. fib as well as seizures. Apparently she was feeling completely fine. They started going to the store and the patient started becoming unconscious. The thought that she was having a seizure so brought her to the emergency department. Patient arrived in the emergency department she was obtunded and not responding. We did place the patient on cardiac monitoring immediately and she was found to be severely bradycardic with heart rates in the 20s and 30s. Patient is unable to provide any other history. This is a 66-year-old female presented to the emergency department with severe bradycardia and appears to be symptomatic from that. The patient is arousable, however significantly drowsy not answering questions appropriately. We did administer 2 rounds of atropine without any success. We did have to place the patient on external pacing. Given her history of diabetes and chronic beta-jeffrey use, there is concern for possible beta-jeffrey toxicity or hyperkalemia. Patient was treated for hyperkalemia with a cocktail of 2 g of calcium, insulin, bicarb and we also added glucagon secondary for possible beta-jeffrey overdose. Patient was kept on external pacing. Cardiology notified. The above per JOSIAH Escalante MD Patient states she had been feeling well up until yesterday morning when in route to the store she began feeling headache and some abdominal discomfort and just not feeling right. She does not remember the events leading up to the ER and admission. She does relate having some episodes of blood sugar uncontrolled earlier this year for which she states she was admitted for coma and treated. She still is grieving the loss of her daughter in June of this year due to heart disease. EKG and telemetry in the ER showed marked bradycardia with initial presenting HR in the 20-30's which improved quickly after treatment noted above. EKG this AM is sinus with UT interval of 196 and rate of 76 bpm. The above per Alessandro Ojeda cardiology PA This morning she is alert and oriented x 4 and resting comfortably in bed. She denies any pain other than slight headache. She has mild shortness of breath with O2 per nasal cannula which she reports is her baseline. She has not been up to the bathroom and notes she uses a wheelchair and walker for ambulation at home. She has been seen by cardiology. <Alison Mitchell - 09/17/21 21:52> Hospital Course Hospital Course: The patient was seen by cardiology. They felt the patient had syncope with questionable seizure-like activity secondary to marked bradycardia with autonomic failure, likely due to combination of clonidine and metoprolol. The patient was successfully treated with a combination of calcium, insulin, glucagon, and bicarb in the emergency room. She returned to normal sinus rhythm by EKG and an echo was ordered. Cardiology recommended monitoring the patient for 24 hours while hypertensive medications were adjusted. They preferred restarting her beta-jeffrey for blood pressure and heart rhythm control and stopping her clonidine. Her echo showed an EF of 55% and she had an elevated right ventricular systolic pressure 59 mmHg. By 09/17/2021, she had no significant arrhythmias or recurrent bradycardia and was feeling much better. Cardiology felt she should continue on metoprolol therapy and was stable to be discharged home. She will follow-up with her PCP and cardiology in 1 week. <Alison Mitchell - 09/17/21 21:52> Objective Vital signs: Temp Pulse Resp BP Pulse Ox 98 F 60 17 162/79 H 98 09/17/21 11:53 09/17/21 12:00 09/17/21 11:53 09/17/21 11:53
[2021-09-19 01:34] LABS: POC Glucose,Bedside 265 (70-110)
[2021-09-20 12:31] LABS: Levetiracetam (Keppra) 17.7 ug/mL (10.0-40.0)
== END 2021-09-17 17:15 | disposition home or self-care (01) ==
LOC: ER 13:28 → 2ND 16:08
PROVIDERS: Physician Assistant; Admitting Provider Family Medicine; Emergency Provider Emergency Medicine; PCP Orthopaedic Surgery; Visit Provider Family Medicine
DX: E87.5 Hyperkalemia (principal); Z79.899 Other long term (current) drug therapy; I48.91 Unspecified atrial fibrillation; I10 Essential (primary) hypertension; E11.9 Type 2 diabetes mellitus without complications; Z20.822 Contact with and (suspected) exposure to COVID-19; Z79.4 Long term (current) use of insulin; Z79.01 Long term (current) use of anticoagulants; R55 Syncope and collapse; R00.1 Bradycardia, unspecified; R06.9 Unspecified abnormalities of breathing
CPT/HCPCS: G0378; 36415; 70450; 71045; 80048; 80053; 80177; 82009; 82803; 82962; 83605; 83690; 83880; 84443; 84484; 85025; 85610; 85730; 93005; 93306; 96365; 96375; 99284; C9803; J1610; J2405; U0003; U0005